=== PATIENT | female | born 1940 | race Caucasian/White ===

== ENCOUNTER → 2016-07-31 | Outpatient (CLI) | payer MEDICARE, OTHER ==
[~2016-07-31] MED LIST: DILT180C67 PO; DIVA250T48 PO; DIVA500T31 PO; ESCI10TA47 PO; GABA-215 PO; HYDR-4074 PO; LEVO100T85; NYST8800 TOP; OXYB5TAB PO; TORS10TA17 PO; TRAM-277 PO; ZOLP-113 PO
--- NOTE | 2016-07-31 11:52 | DI ---
Indication: ITS.REASON: M79.672 PAIN IN LEFT FOOT PROCEDURE: ANKLE LEFT 3 VIEW: Encounter: Initial Comparison: January 19, 2014 Findings: There is no acute fracture, dislocation or malalignment identified. Moderate lateral soft tissue swelling. Degenerative change in the tibiotalar joint. Inferior calcaneal spurs. Impression: No acute osseous abnormality. .
--- NOTE | 2016-07-31 11:54 | DI ---
Indication: ITS.REASON: M79.672 PAIN IN LEFT FOOT PROCEDURE: FOOT LEFT 3 VIEWS: Encounter: Initial Comparison: January 19, 2014 Findings: There is no acute fracture, dislocation or malalignment identified. Advanced degenerative change at the tarsometatarsal joints and evidence of old metatarsal neck fractures. Impression: No acute osseous abnormality. .
== END ==
LOC: IMA 11:17
PROVIDERS: ATTEND Family Medicine
DX: M79.89 Other specified soft tissue disorders (principal); M89.8X7 Other specified disorders of bone, ankle and foot; M77.32 Calcaneal spur, left foot; M79.672 Pain in left foot

== ENCOUNTER 2016-08-29 06:56 | Day surgery (SDC) | payer MEDICARE, OTHER ==
[~2016-08-29] VITALS: Ht 147.3 cm; Wt 93.7 kg
[~2016-08-29 06:56] MED LIST changes: -DIVA250T48 PO; +FENO145T20 PO; -HYDR-4074 PO; -LEVO100T85; +LEVO100T85 PO; -ZOLP-113 PO
--- OUTSIDE RECORDS SUMMARY | 2016-08-29 07:00 | XMS REPORT | Continuity of Care Document ---
Author Author [facility] Organization [facility] Address Unknown Phone Unavailable Support Name Relationship Address Phone DOUGLAS OSORIO MD Caregiver [facility] [address] [place] [address] RASHID [address] [place] [address] [phone] VAN HAYDEN MD Caregiver [address] [place] [address] [address] [place] [phone] BAUTISTA OCONNELL Next Of Kin [address] [place] [address] Insurance Providers Payer Name Policy Number Subscriber Name Relationship Medicare [id number] Lourdes Oconnell 18 Self Other A Insurance [id number] Lourdes Oconnell 18 Self Advance Directives Directive Response Recorded Date/Time Ordered Resuscitation Status Full Code 04/12/14 2:51pm Resuscitation Documents on File No 04/12/14 1:52pm Problems No known problems or medical conditions. Medications Medication Dose Route Sig Days/Qty Instructions Order Date Discontinued Date Status Propoxyphene/Acetaminophen 1 Tab PO NEEDED 07/06/09 01/01/12 Discontinued Diltiazem Hcl 180 Mg PO TWICE A DAY 07/06/09 Active Zolpidem Tartrate 10 Mg PO BEDTIME 07/06/09 Active Levothyroxine Sodium 88 Mcg PO DAILY 07/06/09 05/23/12 Discontinued P-Ephed Hcl/Fexofenadine Hcl 1 Tab.sr PO DAILY 07/06/09 08/29/10 Discontinued Tolterodine Tartrate 4 Mg PO BEDTIME 07/06/09 Active Benzonatate 200 Mg PO DAILY 07/06/09 04/19/11 Discontinued Divalproex Sodium 500 Mg PO BEDTIME 07/06/09 Active Divalproex Sodium 250 Mg PO BEDTIME 07/06/09 01/01/12 Discontinued [Zyrtec] 08/29/10 05/23/12 Discontinued [Flonase] 08/29/10 05/23/12 Discontinued [Lisinopril] 08/29/10 01/01/12 Discontinued Tramadol Hcl 50 Mg PO EVERY 4-6 HOURS PRN 05/17/12 Active Gabapentin 300 Mg PO THREE TIMES A DAY 05/17/12 Active Levothyroxine Sodium DAILY 05/23/12 Active Nystatin 1 Applic TOP TWICE A DAY Apply powder twice daily to affected area. 04/12/14 Active Social History Social History Problem Response Recorded Date/Time Smoking Status Never smoker 04/12/2014 1:53pm Chewing Tobacco Status No 05/26/2012 1:51pm Hx Substance Use No 04/12/2014 1:53pm Hx Alcohol Use No 04/12/2014 1:53pm Has the pt used tobacco in the last 12 months No 04/12/2014 1:53pm Query Response Start Date Stop Date Smoking Status Never smoker Hospital Discharge Instructions No hospital discharge instructions. Plan of Care No plan of care. Functional Status No functional status results. Allergies, Adverse Reactions, Alerts Allergen Type Severity Reaction Status Last Updated Iodinated Contrast Media - IV Dye Allergy Intermediate RASH Active Penicillin Allergy Intermediate HIVES Active 05/17/12 Aloe Allergy Intermediate RASH Active 05/17/12 Codeine Adverse Reaction Mild FEELS "HIGH" Active 05/17/12 Doxycycline Allergy Intermediate RASH Active 05/17/12 Azithromycin Allergy Unknown Active 04/12/14 Doxepin Allergy Unknown Active 05/17/12 Immunizations Name Given Type Hx Influenza Vaccination No Historical Hx Pneumococcal Vaccination Y 2010 Historical Hx Influenza Vaccination No Historical Vital Signs Acute Vital Signs Vital Response Date/Time Temperature (Fahrenheit) 97.3 deg F (96.8 - 99.1) Temperature (Calculated Celsius) 36.49658 degrees C (36.0 - 37.3) Temperature Source Temporal Pulse Rate (adult) 70 bpm (60 - 100) Respiratory Rate 24 breaths/min (10 - 20) O2 Sat by Pulse Oximetry 99 % (90 - 100) Oxygen Delivery Method Room Air Blood Pressure 125/66 mm Hg Blood Pressure Source Automatic Cuff Height 4 ft 10 in Weight 195 lb Body Mass Index 40.0 kg/m^2 Results Test Source Date Result Interp. Ref. Range Comments Anion Gap October 19, 2013 10:20am 12 MEQ/L N 5-15 BUN/Creatinine Ratio October 19, 2013 10:20am 23 RATIO N 6-26 Band Neutrophils # July 22, 2008 11:00am 0.1 T/MM3 - Band Neutrophils % July 22, 2008 11:00am 1.0 % N 0-6 Basophils # (Auto) May 27, 2012 9:08am 0.0 T/MM3 N 0-0.2 Basophils # (Manual) July 22, 2008 11:00am 0.0 T/MM3 N 0-0.2 Basophils % (Manual) July 22, 2008 11:00am 0.0 % N 0-2 Basophils (%) (Auto) May 27, 2012 9:08am 0.3 % N 0-2 Blood Urea Nitrogen October 19, 2013 10:20am 18.0 MG/DL H 7-17 Calcium Level October 19, 2013 10:20am 9.5 MG/DL N 8.4-10.2 Calculated Osmolality October 19, 2013 10:20am 264 MOSM/KG N 261-280 Carbon Dioxide Level October 19, 2013 10:20am 29 MEQ/L N 22-30 Chloride Level October 19, 2013 10:20am 95 MEQ/L L 98-107 Creatinine October 19, 2013 10:20am 0.8 MG/DL N 0.7-1.2 Eosinophils # (Auto) May 27, 2012 9:08am 0.0 T/MM3 N 0-0.5 Eosinophils # (Manual) July 22, 2008 11:00am 0.5 T/MM3 N 0-0.5 Eosinophils % (Manual) July 22, 2008 11:00am 7.0 % H 0-4 Eosinophils (%) (Auto) May 27, 2012 9:08am 0.6 % N 0-4 Glucose Level October 19, 2013 10:20am 106 MG/DL N 65-110 Hematocrit May 27, 2012 9:08am 39.5 % N 36-46 Hemoglobin May 27, 2012 9:08am 13.5 GM/DL N 12-16 Lymphocytes # (Auto) May 27, 2012 9:08am 2.1 T/MM3 N 1-4.8 Lymphocytes # (Manual) July 22, 2008 11:00am 3.5 T/MM3 N 1-4.8 Lymphocytes % (Manual) July 22, 2008 11:00am 47.0 % H 23-45 Lymphocytes (%) (Auto) May 27, 2012 9:08am 29.1 % N 23-45 Mean Corpuscular Hemoglobin May 27, 2012 9:08am 29.5 UUG N 26-34 Mean Corpuscular Hemoglobin Concent May 27, 2012 9:08am 34.2 GM/DL N 31-37 Mean Corpuscular Volume May 27, 2012 9:08am 86.4 UM3 N 80-100 Mean Platelet Volume May 27, 2012 9:08am 8.7 UM3 L 9.4-12.4 Monocytes # (Auto) May 27, 2012 9:08am 1.1 T/MM3 H 0-0.8 Monocytes # (Manual) July 22, 2008 11:00am 1.2 T/MM3 H 0-0.8 Monocytes % (Manual) July 22, 2008 11:00am 16.0 % H 0-9.0 Monocytes (%) (Auto) May 27, 2012 9:08am 15.9 % H 0-9.0 Neutrophils # (Auto) May 27, 2012 9:08am 3.7 T/MM3 N 1.8-7.7 Neutrophils # (Manual) July 22, 2008 11:00am 2.1 T/MM3 N 1.8-7.7 Neutrophils % (Manual) July 22, 2008 11:00am 29.0 % L 33-66 Neutrophils (%) (Auto) May 27, 2012 9:08am 52.8 % N 33-66 Platelet Count May 27, 2012 9:08am 267 T/MM3 N 130-400 Potassium Level October 19, 2013 10:20am 4.5 MEQ/L N 3.6-5 RDW Standard Deviation May 27, 2012 9:08am 39.8 FL N 36.9-50.2 Red Blood Count May 27, 2012 9:08am 4.57 M/MM3 N 4.00-5.20 Sodium Level October 19, 2013 10:20am 136 MEQ/L N 134-144 Urine Bacteria February 25, 2009 10:05am Trace - Urine Bilirubin February 25, 2009 10:05am Negative - Urine Blood February 25, 2009 10:05am 1+ H - Urine Collection Type February 25, 2009 10:05am Not Performed - Urine Color February 25, 2009 10:05am Yellow - Urine Glucose (UA) February 25, 2009 10:05am Negative - Urine Ketones February 25, 2009 10:05am Negative - Urine Leukocyte Esterase February 25, 2009 10:05am Trace H - Urine Nitrite February 25, 2009 10:05am Negative - Urine Protein February 25, 2009 10:05am Negative - Urine RBC February 25, 2009 10:05am 3-5 /HPF - Urine Renal Epithelial Cells May 25, 2008 5:05pm 1-3 /HPF - Urine Specific [place] February 25, 2009 10:05am 1.005 L - Urine Squamous Epithelial Cells February 25, 2009 10:05am Few - Urine Turbidity February 25, 2009 10:05am Clear - Urine Urobilinogen February 25, 2009 10:05am Normal EU/DL - Urine WBC February 25, 2009 10:05am 5-10 /HPF - Urine pH February 25, 2009 10:05am 7.0 - White Blood Count May 27, 2012 9:08am 7.0 T/MM3 N 4.5-11.0 Chemistry Specimen Hemolysis October 19, 2013 10:20am < 15 0-25 0-25: No Hemolysis.26-70: Slight Hemolysis - can falsely elevate K and Urine Protein. 71-285: Moderate Hemolysis - can falsely elevate K, Troponin I, CA 19-9, PTH, CSF GLucose, and Urine Protein, and can falsely decrease Phenytoin. 286-999: Gross Hemolysis - can falsely elevate K, Troponin I, CA 19-9, PTH, CSF Glucose, and Urine Protine, and can falsely decrease Phenytoin. Recommend specimen recollection. Lab Scanned Report October 19, 2013 12:50pm LAB TEST FORM REQUEST [id number] - Turbidity October 19, 2013 10:20am < 20 0-20 Glomerular Filtration Rate Calc October 19, 2013 10:20am 70 - Immature Granulocyte # (Auto) May 27, 2012 9:08am 0.09 T/MM3 H 0.00- 0.03 Immature Granulocyte % (Auto) May 27, 2012 9:08am 1.3 % H 0.0-0.5 Icterus Index October 19, 2013 10:20am < 2 0-7 Name: LOURDES OCONNELL Unit #: [id number] : 1940 Sex: F Loc / Svc: [facility] DOS: 01/19/14 Signed Report #: [id number] DIAGNOSTIC IMAGING REPORT TYPE OF EXAM: FOOT LEFT 3 VIEWS Dictated By: HIMANSHU STEIN MD INDICATION: FELL 4 MONTHS AGO, PAIN COMPARISON: none. FOOT LEFT 3 VIEWS: Evidence of severe tarsal and tarsal - metatarsal arthritis. Evidence of mild arthritis in the toes. Minor deformities at the neck of the second, third, fifth metatarsals appear to be old fractures which have healed. No evidence of an acute fracture. No evidence of a dislocation. IMPRESSION: Arthritis. Evidence of old metatarsal fractures. . Procedures Procedure Status Date Provider(s) Colonoscopy completed 04/13/14 DOUGLAS OSORIO MD Encounters Encounter Location Date/Time Registered Clinic [facility] 01/19/14 12:03pm
[2016-08-29] MEDS: TETRACAINE 0.5% EYE DROPS 4ml BOTTLE LEFT EYE PRN ×3 (07:35→08:43)
[2016-08-29 07:41] VITALS: Ht 147.3 cm; Wt 93.7 kg
[2016-08-29 07:47] VITALS: BP 161/67; PULSE 71; RESP 20; TEMP 98.3; O2SAT 95
[2016-08-29 08:15] VITALS: BP 179/72; PULSE 68; RESP 18; O2SAT 96
[2016-08-29 08:36] VITALS: BP 155/69; PULSE 65; RESP 18; O2SAT 97
[2016-08-29 08:45] VITALS: BP 159/74; PULSE 63; RESP 16; O2SAT 96
[2016-08-29] MEDS ORDERED: PrednisoLONE 1% EYE DROPS 5ml LEFT EYE ONE (08:45)
[2016-08-29] MEDS ORDERED: BRIMONIDINE 0.2% EYE DROPS 5ml LEFT EYE ONE (08:45)
--- NOTE | 2016-08-29 15:50 | OPNOTEF ---
DATE OF OPERATION 08/29/2016 PREOPERATIVE AND POSTOPERATIVE DIAGNOSES Visually significant opacified posterior capsule, left eye. PROCEDURE YAG capsulotomy, left eye. SURGEON Gibson Ford M.D. DESCRIPTION OF PROCEDURE The patient was brought to the laser room where tetracaine was placed into the left eye. Patient was positioned at the laser and a YAG capsulotomy lens was placed over her eye after Goniosol was placed into the lens. The laser was focused and with 37 bursts of laser power at 2.3 millijoules, a total of 81.8 millijoules, the posterior capsule was opened sufficiently so that the patient should have vision restored. The Yag capsulotomy laser lens was removed, the eye rinsed and a drop of Brimonidine placed into the eye and pressure was checked half an hour later and noted to be normal. This completed the procedure. FATOUMATA
[2016-08-29] MEDS ORDERED: TROPICAMIDE 1% EYE DROPS 3ml LEFT EYE PRN (16:00)
[2016-08-29] MEDS ORDERED: PHENYLEPHRINE 2.5% EYE DROPS 5ml LEFT EYE PRN (16:00)
== END 2016-08-29 08:57 | disposition home or self-care (01) ==
LOC: NSC 06:56
PROVIDERS: ATTEND Ophthalmology
DX: H26.492 Other secondary cataract, left eye (principal); Z88.0 Allergy status to penicillin; Z88.1 Allergy status to other antibiotic agents; Z88.5 Allergy status to narcotic agent; Z88.8 Allergy status to other drugs, medicaments and biological substances; Z91.041 Radiographic dye allergy status

== ENCOUNTER → 2016-09-07 | Outpatient (CLI) | payer MEDICARE, OTHER ==
[~2016-09-07] MED LIST changes: +ASPI-917 PO; +OXYC-46 PO
--- NOTE | 2016-09-07 15:18 | DI ---
Indication: ITS.REASON: M25.562 PAIN IN LEFT KNEE PROCEDURE: KNEE LEFT 3 VIEWS: Encounter: Initial Comparison: None Findings: Lucency in the anterior aspect of the patella on the lateral view. No additional area concerning for acute fracture. Tiny tricompartmental osteophytes. Chronic appearing deformity of the fibular head. Impression: Lucency in the anterior patella seen on the lateral view could represent a nondisplaced patellar fracture. Recommend clinical correlation for focal tenderness. .
== END ==
LOC: IMA 14:42
PROVIDERS: ATTEND Family Medicine
DX: R93.7 Abnormal findings on diagnostic imaging of other parts of musculoskeletal system (principal); Z91.81 History of falling; M25.562 Pain in left knee

== ENCOUNTER → 2016-09-12 | Outpatient (CLI) | payer MEDICARE, OTHER ==
[2016-09-12 11:26] LABS: BASOPHILS % (AUTO) 0.3 % (0-2); EOSINOPHILS # (AUTO) 0.3 T/MM3 (0-0.5); EOSINOPHILS % (AUTO) 3.3 % (0-4); HCT - HEMATOCRIT 39.3 % (36-46); HGB - HEMOGLOBIN 12.8 GM/DL (12-16); IMMATURE GRANULOCYTE # (AUTO) 0.02 T/MM3 (0.00-0.03); IMMATURE GRANULOCYTE % (AUTO) 0.2 % (0.0-0.5); LYMPHOCYTES # (AUTO) 2.4 T/MM3 (1-4.8); MEAN CORPUSCULAR HGB 29.8 UUG (26-34); MEAN CORPUSCULAR HGB CONC(MCHC 32.6 GM/DL (31-37); MEAN CORPUSCULAR VOLUME 91.6 UM3 (80-100); MEAN PLATELET VOLUME 10.2 UM3 (9.4-12.4); MONOCYTES # (AUTO) 0.8 T/MM3 (0-0.8); MONOCYTES % (AUTO) 8.4 % (0-9.0); NEUTROPHILS #(AUTO)-ABSOLUTE 5.9 T/MM3 (1.8-7.7); NEUTROPHILS % (AUTO) 62.8 % (33-66); RED BLOOD COUNT 4.29 M/MM3 (4.00-5.20); WBC - WHITE BLOOD COUNT 9.5 T/MM3 (4.5-11.0)
[2016-09-12 11:34] LABS: ANION GAP 14 MEQ/L (5-15); BUN/CREATININE RATIO 24 RATIO (6-26); CALCIUM 9.8 MG/DL (8.4-10.2); CHLORIDE 101 MEQ/L (98-107); CO2 - CARBON DIOXIDE 30 MEQ/L (22-30); GLOMERULAR FILTRATION RATE 54; GLUCOSE 99 MG/DL (65-110); POTASSIUM 4.1 MEQ/L (3.6-5); SODIUM 145 MEQ/L (134-144)
--- NOTE | 2016-09-12 12:23 | DI ---
INDICATION: ITS.REASON: Z01.89 PRE-OP EXAM PROCEDURE: CHEST 2-VIEWS UPRIGHT (PA \T\ LAT) Encounter: Initial COMPARISON: December 06, 2015 FINDINGS: The lungs are clear without evidence of focal abnormal airspace opacity. There is no pleural effusion or pneumothorax. The heart size, mediastinal contours and pulmonary vascularity are stable with a very tortuous thoracic aorta. Orthopedic hardware in the right humeral head region. Degenerative change in the spine and shoulders. IMPRESSION: No acute cardiopulmonary disease. .
== END ==
LOC: IMA 10:32
PROVIDERS: ATTEND Orthopaedic Surgery
DX: Z01.818 Encounter for other preprocedural examination (principal)
CPT/HCPCS: 36415; 80048; 85025; 93005

== ENCOUNTER 2016-09-14 08:25 | Day surgery (SDC) | payer MEDICARE, OTHER ==
[2016-09-14] VITALS (21 sets, daily range): BP systolic 110–165; BP diastolic 54–98; PULSE 72–90; RESP 12–18; TEMP 97.3–98.7; O2SAT 92–98; Ht 148.6 cm; Wt 92.4 kg
[~2016-09-14] VITALS: Ht 148.6 cm; Wt 92.4 kg
[~2016-09-14 08:25] MED LIST changes: -ASPI-917 PO; +CLINDAMYCIN 600mg IVPB 50 ML IV ONE; +LIDOCAINE 1% (10mg/ml) 2ml SDV INJ ONE; -OXYC-46 PO
--- OUTSIDE RECORDS SUMMARY | 2016-09-14 08:28 | XMS REPORT | Continuity of Care Document ---
Author Author [facility] Organization [facility] Address Unknown Phone Unavailable Support Name Relationship Address Phone ARYAN MAHER MD Caregiver [address] [place] [address] [address] [place] [address] Unavailable VAN HAYDEN MD [address] [place] [address] Unavailable BAUTISTA OCONNELL Next Of Kin [phone] [address] Insurance Providers Guarantor Lourdes Oconnell Address [address] [address] Email DENIED [phone] Payer Medicare Policy Number [id number] Subscriber's Name EmmyLourdes Wang Relationship 18 Self Payer Other A Insurance Policy Number [id number] Subscriber's Name EmmyLourdes Relationship 18 Self Group Number [id number] Advance Directives Directive Response Recorded Date/Time Ordered Resuscitation Status Full Code 08/28/16 3:56pm Resuscitation Documents on File No 08/29/16 7:41am DPOA for Healthcare Only No 08/29/16 7:41am Living Will No 08/29/16 7:41am Problems No problem information available. Medications Current Home Medications Medication Dose Units Route Directions Days Qty Instructions Start Date Diltiazem Hcl (Diltiazem Er) 180 Mg Capsule.cr 180 Mg Oral Twice A Day 07/06/09 Divalproex Sodium (Depakote) 500 Mg Tablet. 500 Mg Oral Bedtime 07/06/09 Escitalopram Oxalate 10 Mg Tablet 1 Tab Oral Daily 05/10/15 Fenofibrate Nanocrystallized (Fenofibrate) 145 Mg Tablet 1 Tab Oral Daily 30 08/28/16 Gabapentin 300 Mg Capsule 2 Tab Oral Three Times A Day 05/17/12 Levothyroxine Sodium 100 Mcg Tablet Daily 05/23/12 Nystatin 1 Each Powder.ea. 1 Applic Topically Three Times A Day 04/12/14 Oxybutynin Chloride (Oxybutynin Chloride Er) 5 Mg Tab.er.24 1 Tab Oral Bedtime 05/10/15 Torsemide 10 Mg Tablet 1 Tab Oral Daily 05/10/15 Tramadol Hcl 50 Mg Tablet 50 Mg Oral Every 4-6 Hours as needed Past Home Medications Medication Directions Ordered Status Benzonatate 200 Mg Capsule, 200 Mg Oral Daily 07/06/09 Discontinued Divalproex Sodium (Depakote) 250 Mg Tablet.dr, 250 Mg Oral Bedtime 07/06/09 Discontinued Flonase , 08/29/10 Discontinued Levothyroxine Sodium 88 Mcg Tablet, 88 Mcg Oral Daily 07/06/09 Discontinued Lisinopril , 08/29/10 Discontinued P-Ephed Hcl/Fexofenadine Hcl (Sofi-D 24 Hour Tablet) 1 Tab.sr .24 H Tab.sr.24h, 1 Tab.sr Oral Daily 07/06/09 Discontinued Propoxyphene/Acetaminophen (Prmxpxq-T-Wwkx 100-650 Tab) 1 Tab Tablet, 1 Tab Oral As Needed 07/06/09 Discontinued Zyrtec , 08/29/10 Discontinued Social History Social History Problem Response Recorded Date/Time Onset Date Status Chewing Tobacco Status No 05/26/2012 1:51pm Not Applicable Not Applicable Hx Substance Use No 08/28/2016 11:15am Not Applicable Not Applicable Hx Alcohol Use No 08/28/2016 11:15am Not Applicable Not Applicable Has the pt used tobacco in the last 12 months No 08/28/2016 11:15am Not Applicable Not Applicable Query Response Start Date Stop Date Smoking Status Never smoker Hospital Discharge Instructions No hospital discharge instructions. Plan of Care Discharge Date 08/29/16 8:57am Prescriptions See Medication Section Functional Status Query Response Date Recorded Ability to complete ADL's impeded by No change August 29, 2016 7:41am Allergies, Adverse Reactions, Alerts Allergen Type Severity Reaction Status Last Updated Iodinated Contrast Media - Oral and Allergy Intermediate RASH Active 08/29 Penicillin Allergy Intermediate HIVES Active 08/29/16 aloe Allergy Intermediate RASH Active 08/29/16 Codeine Adverse Reaction Mild FEELS "HIGH" Active 08/29/16 Doxycycline Allergy Intermediate RASH Active 08/29/16 Azithromycin Allergy Unknown Active 08/29/16 Cetirizine Allergy Unknown Active 08/29/16 Doxepin Allergy Unknown Active 08/29/16 Immunizations Query Response on File Recorded Date/Time Hx Influenza Vaccination Y FEBRUARY 2016 08/28/16 11:15am Hx Pneumococcal Vaccination Y 201008/28/16 11:15am Hx Influenza Vaccination Y FEBRUARY 2016 08/28/16 11:15am Vital Signs Acute Vital Signs Vital Response Date/Time Temperature (Fahrenheit) 98.3 deg F (96.8 - 99.1) 08/29/2016 7:47am Temperature (Calculated Celsius) 36.36260 degrees C (36.0 - 37.3) 08/29/2016 7:47am Temperature Source Oral 08/29/2016 7:47am Pulse Rate (adult) 63 bpm (60 - 100) 08/29/2016 8:45am Respiratory Rate 16 breaths/min (10 - 20) 08/29/2016 8:45am O2 Sat by Pulse Oximetry 96 % (90 - 100) 08/29/2016 8:45am Oxygen Delivery Method Room Air 08/29/2016 8:45am Blood Pressure 159/74 mm Hg 08/29/2016 8:45am Blood Pressure Source Automatic Cuff 08/29/2016 8:45am Height (Feet) 4 feet 08/29/2016 7:41am Height (Inches) 10.00 inches 08/29/2016 7:41am Weight (Kilograms) 93.700 kg 08/29/2016 7:41am Body Mass Index (BMI) 43.2 08/29/2016 7:41am Results No known relevant diagnostic tests, laboratory data and/or discharge summary. Procedures Procedure Status Date Provider(s) X-ray exam of ankle Completed 07/31/16 X-ray exam of foot Completed 07/31/16 YAG laser treatment of eye Active 08/29/16 ARYAN MAHER MD Encounters Encounter Location Arrival/Admit Date Discharge/Depart Date Attending Provider Departed [facility] 08/29/16 6:56am 08/29/16 8: 57am ARYAN MAHER MD Registered Clinic [facility] 07/31/16 11:17am VAN HAYDEN MD
--- OUTSIDE RECORDS SUMMARY | 2016-09-14 08:29 | XMS REPORT | Continuity of Care Document ---
Author Author [facility] Organization [facility] Address Unknown Phone Unavailable Support Name Relationship Address Phone DOUGLAS OSORIO MD Caregiver [facility] [address] [place] [address] [address] [place] [address] [phone] VAN HAYDEN MD Caregiver [address] [place] [address] [address] [place] [phone] BAUTISTA OCONNELL Next Of Kin [address] [place] [address] Insurance Providers Payer Name Policy Number Subscriber Name Relationship Medicare [id number] Lourdes Oconnell 18 Self Other A Insurance [id number] Lourdes Oconnell 18 Self Advance Directives Directive [...] F (96.8 - 99.1) Temperature (Calculated Celsius) 36.61056 degrees C (36.0 - 37.3) Temperature Source [...] 2008 5:05pm 1-3 /HPF - Urine Specific [place] February 25, 2009 10:05am 1.005 L - [...] 19, 2013 12:50pm LAB TEST FORM REQUEST [id number] - Turbidity October 19, 2013 10:20am < 20 0-20 Glomerular Filtration Rate Calc October 19, 2013 10:20am 70 - Immature Granulocyte # (Auto) May 27, 2012 9:08am 0.09 T/MM3 H 0.00- 0.03 Immature Granulocyte % (Auto) May 27, 2012 9:08am 1.3 % H 0.0-0.5 Icterus Index October 19, 2013 10:20am < 2 0-7 Name: LOURDES OCONNELL Unit #: [id number] : 1940 Sex: F Loc / Svc: [facility] DOS: 01/19/14 Signed Report #: [id number] DIAGNOSTIC IMAGING REPORT TYPE OF EXAM: FOOT [...] MD Encounters Encounter Location Date/Time Registered Clinic [facility] 01/19/14 12:03pm
[2016-09-14] MEDS ORDERED: OXYC-46 PO (09:15)
[2016-09-14] MEDS: LR 1,000 ML IV SCH ×2 (09:31→22:48)
--- NOTE | 2016-09-14 09:51 | ANESPREOP ---
Anesthesia Record Date and Time DATE: 09/14/16 TIME: 09:48 Pre-Op Diagnosis left patella fracture Proposed Surgical Procedure LT KNEE ORIF NPO since: 2199 Allergies: Coded Allergies: Iodinated Contrast Media - Oral and (Verified Allergy, Intermediate, RASH , 08/29/16) Penicillins (Verified Allergy, Intermediate, HIVES, 08/29/16) aloe (Verified Allergy, Intermediate, RASH, 08/29/16) doxycycline (Verified Allergy, Intermediate, RASH, 08/29/16) azithromycin (Unverified Allergy, Unknown, 08/29/16) cetirizine (Unverified Allergy, Unknown, 08/29/16) PER H&P doxepin (Verified Allergy, Unknown, 08/29/16) codeine (Verified Adverse Reaction, Mild, FEELS "HIGH", 08/29/16) Ht/Wt/BMI Height: 4 ' 10.50 " Weight: 95.500 kg BMI: 43.3 kg/m2 Vital Signs Date Time Temp Pulse Resp B/P Pulse Ox O2 Delivery O2 Flow Rate FiO2 09/14/16 09:21 98.7 72 16 165/72 94 Room Air Medications Inpatient Medications Current Medications Medications (Trade) Dose Ordered Sig/Melecio Start Time Stop Time Status Last Admin Dose Admin Lactated Ringer's (Lactated Ringers) 1,000 ml @ 50 mls/hr Q20H 09/14/16 07:00 09/14/16 09:31 50 MLS/HR Diltiazem Hcl (Diltiazem Er) 180 Mg Capsule.cr, 180 MG PO BID, (Reported) Last Taken: on 09/14/16 0600 Divalproex Sodium (Depakote) 500 Mg Tablet.dr, 500 MG PO HS, (Reported) Last Taken: on 09/13/16 0830 Escitalopram Oxalate (Escitalopram Oxalate) 10 Mg Tablet, 1 TAB PO DAILY, (Reported) Last Taken: on 09/13/16 06 Fenofibrate Nanocrystallized (Fenofibrate) 145 Mg Tablet, 1 TAB PO DAILY, (Reported) Last Taken: on 09/13/162029 Gabapentin (Gabapentin) 300 Mg Capsule, 2 TAB PO TID, (Reported) Last Taken: on 09/13/162029 Levothyroxine Sodium (Levothyroxine Sodium) 100 Mcg Tablet, 112 MCG PO DAILY, (Reported) Last Taken: on 09/14/16 06 Nystatin (Nystatin) 1 Each Powder.ea., 1 APPLIC TOP TID, (Reported) Last Taken: on 09/07/16 Oxybutynin Chloride (Oxybutynin Chloride ER) 5 Mg Tab.er.24, 1 TAB PO HS, (Reported) Last Taken: on 09/13/162029 Oxycodone HCl/Acetaminophen (Percocet 5-325 mg Tablet) 5-325 Tablet, 1 TAB PO Q4H PRN for PRN ORDERS, (Reported) Last Taken: on 09/13/161599 Torsemide (Torsemide) 10 Mg Tablet, 1 TAB PO DAILY, (Reported) Last Taken: on 09/13/16599 Tramadol Hcl (Tramadol Hcl) 50 Mg Tablet, 50 MG PO Q4-6H PRN, (Reported) Last Taken: on 09/13/162029 Currently on Beta Roxanna: No Medical/Surgical History Anesthesia PMH: Reports: *Hypertension (CONTROLLED MEDICATIONS), Asthma (NO INH ), Headaches, Pneumonia (HX OF MORE THAN 5 YEARS AGO), Thyroid Disease ( HYPOTHYROID), Denies: *Angina, *Diabetes, *Dyspnea, *[place], Anesthesia Reactions ( NO AIRWAY ISSUES ), Arthritis (HISTORY OSTEOPOROSIS), Blood Transfusion Reac, CHF, COPD, Cancer, Clotting Problems, Deep Vein Thrombosis, Glaucoma, Hepatitis , Hiatal Hernia, Malignant Hyperthermia, Reflux, Renal Disease, Rheumatic Fever , Seizures, Sleep Apnea, Tuberculosis Smoking Status: Never smoker Has pt. smoked today?: No Use Chewing Tobacco?: No Second Hand Exposure: No Substance Use Type: does not use Substance last used: prior to arrival Alcohol Intake: none Past Surgical History Orthopedic Surgeries: Yes - 2 TOES AMPUTATED ON RT FOOT; OPEN RCR RT W/ PLATE/ SCREWS;HAMMER TOE REPAIR Abdominal Surgeries: No Genitourinary Surgeries: Yes - CYSTO Cardiac Surgeries: No Endocrine Surgeries: No Reproductive Surgeries: Yes - D&C, TUBAL, ABD HYST Neurological Surgeries: Yes - LAMINECTOMY X2 Ear Surgeries: No Nose Surgeries: Yes - NOSE SURGERY Throat Surgeries: No Other Surgeries: Yes - DENTAL SURGERY, COLONOSCOPIES, B CATARACTS Anesthesia Adverse Reactions: FOUND none Family Hx of Anesthesia Advers: none Hx of Motion Sickness: No Pertinent Findings EKG Rhythm: Sinus Rhythm Physical Exam Respiratory: Lungs clear Cardiovascular: FOUND Regular rate, rhythm, FOUND Systolic murmur Airway Assessment Mallampati Score: II TMD: 3 Fingerbreadths Neck Extension: Good Teeth: Chipped Teeth/Crowns Overall Assessment: No Airway Concerns ASA: 3 Plan Anesthesia Plan: LMA Discussion Discussed risks/options/alternatives of anesthesia and questions answered. Patient consents. Nursing pain assessment noted. Present: Spouse Attestation Statement Prior to the delivery of any anesthetic medication, I examined the patient, developed the plan, obtained the patient's consent and discussed the risk and benefits of the procedure with the patient/guardian. DAREK COLE I [employer] September 14, 2016 09:50
[2016-09-14] MEDS ORDERED: KETAMINE 500mg/10ml INJECTION ONE (10:37)
[2016-09-14] MEDS ORDERED: MIDAZOLAM 5mg/5ml INJECTION ONE (10:37)
[2016-09-14] MEDS ORDERED: PROPOFOL 500mg 50 ML IV ONE (10:37)
[2016-09-14] MEDS ORDERED: FENTANYL 250mcg/5ml INJECTION ONE (10:37)
[2016-09-14] MEDS ORDERED: HYDROMORPHONE 2mg/ml INJECTION ONE (10:50)
[2016-09-14] MEDS ORDERED: BUPIVACAINE 0.25% (2.5mg/ml) INJ 30ml SDV ONE (10:57)
[2016-09-14] MEDS ORDERED: PROPOFOL 200mg 20 ML IV ONE (12:03)
--- NOTE | 2016-09-14 12:24 | PDPROCED ---
Immediate Operative Note DATE: 09/14/16 TIME: 12:22 Preop Diagnosis: LEFT COMMINUTED PATELLA FRACTURE Postop Diagnosis: Same as above Surgical Procedures: Other (ORIF L Patella) Surgeon: Rojas Driver Examiner: Other (Salvador Victoria MD) Anesthesia: General Pertinent Findings: comminuted inferior pole Complications: none Estimated Blood Loss minimal JESSE FLORENTINO MD September 14, 2016 12:24
[2016-09-14] MEDS ORDERED: METOCLOPRAMIDE 10mg/2ml INJECTION IV PRN (12:30)
[2016-09-14] MEDS ORDERED: MORPHINE SULFATE 4 MG SYRINGE IV PRN (12:30)
[2016-09-14] MEDS ORDERED: HYDROMORPHONE 2mg/ml INJECTION IV PRN (12:30)
[2016-09-14] MEDS ORDERED: ONDANSETRON 4mg/2ml INJECTION IV PRN ×2 (12:30)
[2016-09-14] MEDS ORDERED: MILK OF MAGNESIA 30 ML SUSP PO PRN (12:30)
[2016-09-14] MEDS ORDERED: LORAZEPAM 1 MG TABLET PO PRN (12:30)
--- NOTE | 2016-09-14 12:30 | NUR ---
MONTALVO INSERTION MONTALVO INSERTED UNDER STERILE TECHNIQUE BY THIS RN. THIS RN RECEIVED VERBAL ORDER FROM DR. HAQ THAT IF PATIENT HAD NOT VOIDED BY THE TIME SHE WAS TO BE PICKED UP BY PRES. BOBBY THEN A MONTALVO COULD BE REINSERTED. PATIENT UNABLE TO VOID ON BSC AND WAS NOT INCONTINENT. 16 SETSWANA MONTALVO INSERTED. 10 CC IN BALLOON. PATIENT DOES NOT C/O PAIN DURING INSERTION. IMMEDIATE RETURN OF CLEAR YELLOW URINE. WILL CONTINUE TO MONITOR. Addendum: 09/14/16 at 1309 by PRUDENCIO VELASQUEZ RN CARE PROVIDER MISTAKE. THIS NOTE NOT INTENDED FOR THIS PATIENT. IGNORE NOTE
--- NOTE | 2016-09-14 12:40 | NUR ---
DISMISSAL PATIENT DISMISSED TO [facility] VIA WHEELCHAIR AND [facility] STAFF. PACKET AND PRESCRIPTIONS SENT WITH STAFF. PERSONAL BELONGINGS SENT WITH PATIENT. IV CATHETER REMOVED BY THIS RN. IV CATHETER TIP INTACT. MONTALVO REMAINS IN PLACE AT TIME OF TRANSFER. REPORT CALLED TO CONSTANCE VICTOR AT [facility] AFTER DISMISSAL. Addendum: 09/14/16 at 1308 by PRUDENCIO VELASQUEZ RN CARE PROVIDER MISTAKE. THIS NOTE NOT INTENDED FOR THIS PATIENT. IGNORE NOTE
--- NOTE | 2016-09-14 12:58 | NUR ---
ADMISSION PATIENT ADMITTED TO ROOM 123 AT THIS TIME VIA CART AND PACU STAFF. PATIENT ABLE TO TRANSFER SELF FROM CART TO SURGICAL UNIT BED. A/OX3 BUT DROWSY. PATIENT RATING PAIN AT A 7/10. PATIENT FALLING ASLEEP DURING PERIOD WHEN RN IS NOT ASKING QUESTIONS. EASILY AROUSED. DENIES N/V, CHEST PAIN, AND SOA. FAMILY AT BEDSIDE. BED IN THE LOWEST POSITION, CALL LIGHT WITHIN REACH, SIDE RAILS UPX2, AND BED ALARM ON. WILL CONTINUE TO MONITOR.
--- NOTE | 2016-09-14 13:00 | ANESPO ---
Post-Op Note Date 09/14/16 Time: 13:00 Status Pt Participated in Evaluation: Pt participated in person Vital Signs Date Time Temp Pulse Resp B/P Pulse Ox O2 Delivery O2 Flow Rate FiO2 09/14/16 12:50 81 14 135/61 96 Nasal Cannula 3.00 09/14/16 12:15 98.1 Respiratory Function: Airway patent, Regular respirations Cardiovascular Function: Regular pulse Mental Status: Alert/oriented Pain Level Intensity: 3 Hydration: Taking po fluids, IV infusing Complications during Recovery None apparent Follow-Up Instructions Instructions Per Surgeon DAREK COLE CRNA September 14, 2016 13:00
[2016-09-14] MEDS: OXYCODONE/APAP 5mg/325mg TABLET PO PRN ×3 (13:47→20:34)
--- NOTE | 2016-09-14 13:54 | DI ---
Indication: ITS.REASON: ORIF LEFT PATELLA PROCEDURE: RF KNEE LEFT 3 VIEWS: Encounter: Initial Comparison: Radiographs dated September 07, 2016 Findings: Five fluoroscopic spot images are submitted for interpretation. Images show open reduction and internal fixation of the patellar fracture with placement of two flexible fixation and cerclage wires. Impression: Fluoroscopy as above. Fluoroscopy time is 61 seconds. Fluoroscopy dose is 402 mRad. .
[2016-09-14] MEDS: NAPROXEN 220 MG TABLET PO PRN (16:43)
[2016-09-14] MEDS: CLINDAMYCIN 600mg IVPB 50 ML IV SCH (17:19)
--- NOTE | 2016-09-14 18:35 | NUR ---
END OF SHIFT REPORT PATIENT A/OX3. ROOM AIR. VITAL SIGNS STABLE. AFEBRILE. PT ATTEMPTED TO GET OUT OF BED WITH PT/OT BUT WAS UNSUCCESSFUL DUE TO NOT BEING ABLE TO MAINTAIN TOE-TOUCH INSTRUCTIONS. PATIENT USES BEDPAN AT CURRENT TIME FOR VOIDING. ADEQUATE URINARY OUTPUT. NO BM DURING THE SHIFT. PAIN HAS BEEN CONTROLLED WITH PRN PERCOCET, ALEVE, AND ONE DOSE OF IV MORPHINE. DENIES N/V, CHEST PAIN, AND SOA. BRACE ON LEFT LEG REMAINS IN PLACE. NO S/S OF DRAINAGE. WILL CONTINUE TO MONITOR.
--- NOTE | 2016-09-14 19:24 | OPNOTEF ---
DATE OF SURGERY 09/14/2016 PREOPERATIVE DIAGNOSIS Left comminuted patella fracture. POSTOPERATIVE DIAGNOSIS Left comminuted patella fracture. PROCEDURE Open reduction internal fixation left closed comminuted patella fracture. SURGEON Stan Xie MD PLASTIC SEWER Bharath Faye PA-C ANESTHESIA General. FLUIDS Please refer to Anesthesia chart. EBL Minimal. TOURNIQUET Refer to Anesthesia chart. COMPLICATIONS None. CONDITION Stable in recovery room. DESCRIPTION OF PROCEDURE The patient was identified in the preoperative holding area. The operative extremity was identified and appropriately marked. Risks, benefits, alternatives and potential complications were discussed and informed consent was obtained. The patient was taken to the operating theatre and placed supine on the operating table. Appropriate cardiorespiratory monitors were applied. General anesthesia was induced. Attempt was made at a spinal but appeared to have not taken. The patient was positioned on a fracture table. Appropriate cardiorespiratory monitors had been applied as mentioned. All bony prominences well padded. The left lower extremity was prepped and draped in the usual fashion after application of the tourniquet which was not yet inflated. Surgical time-out was performed, confirmed with myself, the shoulder joiner and circulating nurse. Preoperative antibiotics were given. The leg was exsanguinated with an Esmarch and the tourniquet inflated to 300 mmHg. A knee roll was placed behind the knee and the knee was placed in slight flexion. A 10-cm longitudinal anterior incision was created. Electrocautery was used for hemostasis as necessary. Full-thickness subcutaneous flaps were elevated. Hemorrhagic bursa was then encountered. This was incised longitudinally and elevated off the anterior aspect of the patella. An anterior fracture line was then evident. This was distracted by approximately 2 cm. A Bohemia elevator and sharp dissection were used to resect any loose tissue from the fracture area. A small extension of the fracture as a tear through the medial and lateral retinacular were performed to aid in inspection of the fragments. The proximal fragment was a fairly sizable piece. The distal fragment had anterior cortex which pieced over the proximal fragment. A large cancellus fragment extended from the superior fragment towards the distal. The distal pole was comminuted with comminuted articular fragments. These were removed from the joint as they were not able to be fixed or salvaged. The joint itself was copiously lavaged and irrigated. Curettes were used to freshen the fracture site. Two 2-mm K-wires were passed in a retrograde fashion through the proximal pole extending proximally and then backing the pins to the level of the fracture. We then reduced the fracture utilizing two bone tenacula in a vhjqsomt-rv-kwuppo direction as well as a single tenaculum in the gfpkumvv-wx-mrvkwzpjd direction to reduce this anterior cortical fragment. X-rays were then obtained showing overall good reduction. There was concern about osteopenia in the distal fragment, but we felt we had a reasonable enough cortical rim inferiorly that we were able to utilize this. The 2-mm K-wires were then advanced across the fracture site and out the distal pole of the patella. Again, x-rays were obtained showing maintenance of reduction. A #2 FiberWire was then placed in a kigpgo-vn-npflt fashion over the anterior aspect of the patella lying behind the K-wires both proximally and distally and this was tied. This was followed by a simple cerclage in the same fashion utilizing #2 FiberWire. These were also tied. The clamps were removed at this point as reduction was being maintained. We then proceeded to place an 18-gauge wire posterior to the K-wires both proximally and distally utilizing an angiocatheter to pass as close to bone as possible. They were passed in a sjlyxk-il-bnauj fashion. Two loops were created - one proximal-medial, one distal-lateral. These were simultaneously twisted to apply tension across the anterior aspect of the fracture. The wires were then cut and bent into soft tissue. Final x-rays were obtained. The knee was taken through gentle range of motion and easily obtained 60 degrees of flexion. There was no displacement but we did not want to press it further given the patient's distal osteopenia. Repeat x-rays showed maintenance of reduction. The wound was then copiously irrigated as was the joint via the retinacular incisions. The retinacular incisions were then closed with interrupted zbovaq-df-jsnev #2 FiberWire sutures. The bursal layer was then closed over the hardware and anterior patella utilizing interrupted pcmkjr-au-euizk #1 Vicryl. Skin was closed with 2-0 inverted subcutaneous Vicryl sutures and the skin closed with a running 4-0 quill suture. Dermabond was then applied followed by a Mepilex dressing. The tourniquet was deflated as an Zac bandage was applied followed by an IROM brace locked in extension. The patient was awakened from anesthesia and taken to the recovery room in stable and satisfactory condition. FATOUMATA
[2016-09-14] MEDS: SENNA + DOCUSATE TAB PO SCH (20:34)
[2016-09-14] MEDS: ASPIRIN *EC* 325mg TABLET PO SCH (20:34)
[2016-09-15] MEDS: OXYCODONE/APAP 5mg/325mg TABLET PO PRN ×3 (00:09→10:42)
[2016-09-15] MEDS: NOZIN NASAL SWAB NS SCH ×2 (01:28→09:23)
[2016-09-15] MEDS: CLINDAMYCIN 600mg IVPB 50 ML IV SCH ×2 (01:29→09:23)
[2016-09-15 04:45] VITALS: BP 154/66; PULSE 75; RESP 12; TEMP 98.4; O2SAT 92
--- NOTE | 2016-09-15 05:01 | NUR ---
SHIFT SUMMARY PATIENT IS ALERT AND ORIENTED X3 THIS SHIFT. VITAL SIGNS ARE STABLE ON ROOM AIR. PATIENT HAS NOT BEEN UP FROM BED THIS SHIFT. BEDPAN HAS BEEN USED FOR VOIDING. PATIENT DENIES ANY NAUSEA OR VOMITING THIS SHIFT. PAIN HAS BEEN CONTROLLED WITH PO PRN PERCOCET THIS SHIFT. WILL CONTINUE TO MONITOR.
[2016-09-15 05:46] LABS: BASOPHILS % (AUTO) 0.5 % (0-2); EOSINOPHILS # (AUTO) 0.2 T/MM3 (0-0.5); HGB - HEMOGLOBIN 11.6 GM/DL (12-16); IMMATURE GRANULOCYTE # (AUTO) 0.02 T/MM3 (0.00-0.03); IMMATURE GRANULOCYTE % (AUTO) 0.3 % (0.0-0.5); LYMPHOCYTES # (AUTO) 1.6 T/MM3 (1-4.8); LYMPHOCYTES % (AUTO) 26.2 % (23-45); MEAN CORPUSCULAR HGB 29.6 UUG (26-34); MEAN CORPUSCULAR HGB CONC(MCHC 32.2 GM/DL (31-37); MEAN CORPUSCULAR VOLUME 91.8 UM3 (80-100); MEAN PLATELET VOLUME 10.3 UM3 (9.4-12.4); MONOCYTES # (AUTO) 0.9 T/MM3 (0-0.8); MONOCYTES % (AUTO) 14.5 % (0-9.0); NEUTROPHILS #(AUTO)-ABSOLUTE 3.3 T/MM3 (1.8-7.7); NEUTROPHILS % (AUTO) 54.5 % (33-66); RED BLOOD COUNT 3.92 M/MM3 (4.00-5.20)
[2016-09-15 06:02] LABS: ANION GAP 10 MEQ/L (5-15); BUN/CREATININE RATIO 18 RATIO (6-26); CALCIUM 9.1 MG/DL (8.4-10.2); CHLORIDE 103 MEQ/L (98-107); CO2 - CARBON DIOXIDE 29 MEQ/L (22-30); CREATININE 0.8 MG/DL (0.7-1.2); GLOMERULAR FILTRATION RATE 70; GLUCOSE 107 MG/DL (65-110); POTASSIUM 4.1 MEQ/L (3.6-5); SODIUM 142 MEQ/L (134-144)
[2016-09-15 08:29] VITALS: BP 152/70; PULSE 88; RESP 18; TEMP 96.2; O2SAT 95
[2016-09-15 08:39] VITALS: PULSE 88; RESP 18
[2016-09-15] MEDS: SENNA + DOCUSATE TAB PO SCH (09:23)
[2016-09-15] MEDS: ASPIRIN *EC* 325mg TABLET PO SCH (09:23)
--- NOTE | 2016-09-15 10:10 | NUR ---
FABRICIO THIS WORKER MET WITH PT ON THIS DATE. THIS WORKER INTRODUCED SELF AND ROLE OF CASE MANAGEMENT. DISCHARGE PLANNING DISCUSSED. OPTIONS OF RETIREMENT, IRU, AND HOME WERE DISCUSSED. PT ONLY INTERESTED IN IRU OR HOME. PT REPORTED THAT IF SHE DID NOT GET INTO THE IRU THEN SHE WOULD HAVE TO GO HOME. THIS WORKER DISCUSSED HOME NEEDS IF THAT WERE THE PLAN. PT REPORTED THAT SHE HAS A AND SON THAT ARE THERE AND THAT SHE MIGHT NEED A BEDSIDE COMMODE AND WALKER. IRU SCREEN PLACED AT THIS TIME. CONSUELO, FROM IRU WILL PLAN TO SCREEN PT AFTER PT AND OT EVALUATIONS. UPDATE TO PRIMARY NURSE AT THIS TIME. NURSE WILL PLAN TO CONTACT CONSUELO WHEN THERAPY EVALUATIONS ARE COMPLETED.
--- NOTE | 2016-09-15 11:03 | PDORTHOPN ---
Subjective Date DATE: 09/15/16 TIME: 11:02 Subjective doing well, no chest pain or SOB Objective Vital Signs Vital signs Vital Signs 09/14/16 09/15/16 09/15/16 09/15/16 23:08 04:45 08:29 08:39 Temp 98.3 98.4 96.2 Pulse 73 75 88 88 Resp 12 12 18 18 B/P 136/67 154/66 152/70 Pulse Ox 93 92 95 O2 Delivery Room Air Room Air Room Air Height (Feet): 4 Height (Inches): 10.50 Weight (Kilograms): 92.400 General General Appearance: No Acute Distress Cardiovascular (Brief) Cardiac: FOUND: calf easily compressible, calf soft, nontender, pedal pulses intact Surgical Site Incision: FOUND: dressing intact, no drainage Integumentary (Brief) Integumentary Brief: FOUND dry, FOUND pink, FOUND warm Laboratory Laboratory Laboratory Tests 09/15/16 04:26 Laboratory Tests 09/15/16 04:26 Assessment & Plan Problems: (1) Patella fracture Status: Acute Qualifiers: Encounter type: initial encounter Fracture type: closed Fracture morphology: other fracture Laterality: left Qualified Codes: S82.092A - Other fracture of left patella, initial encounter for closed fracture Assessment & Plan: TTWB with immobilizer. To IRU today Hospital Course Summary Disclaimer The visit summary below is not to be considered part of the above Progress Note. CY CHOW MD September 15, 2016 11:03
[2016-09-15 12:34] VITALS: BP 155/62; PULSE 71; RESP 16; TEMP 96.6; O2SAT 96
--- NOTE | 2016-09-15 12:57 | NUR ---
CM PT NOT ACCEPTED TO IRU. PT NOTIFIED. PT WOULD LIKE TO GO HOME AND REQUESTED [facility]. PT REPORTED THAT SHE WOULD GET THE DME THROUGH THE [facility] THAT SHE NEEDED. PT HAS ALREADY CALLED THE [facility] TO COORDINATE THE DME. PT REPORTED THAT WOULD BE AVAILABLE TO PICK HER UP TODAY. PT REPORTED THAT SHE HAS CONSIDERED HIRING SOMEONE TO HELP OUT DURING THE DAY WHEN [place]." PT HAS THIS WORKER'S CONTACT INFORMATION AND ENCOURAGED TO CONTACT THIS WORKER WITH ANY ADDITIONAL NEEDS. THIS WORKER SPOKE WITH [facility] ([facility]) ON THIS DATE. REFERRAL MADE WITH ORDERS FAXED TO [facility]. UPDATE WITH PRIMARY NURSE.
[2016-09-15] MEDS ORDERED: ASPI-917 PO (13:07)
[2016-09-15] MEDS: NAPROXEN 220 MG TABLET PO PRN (13:19)
--- NOTE | 2016-09-15 13:55 | NUR ---
Discharge Pt discharged at this time via wheelchair through the main entrance in the company of an adult. Personal belongings sent with Pt. Prescription for Percocet was sent with Pt to take to preferred pharmacy. IV catheter DC'd prior to discharge, catheter tip intact. Wristband removed. Discharge packet and instructions gone over with Pt. This RN discussed medications, diet, activity, restrictions, and follow up appt with Pt. [facility] health services set up with Pt by Sierra Prieto CM.
[2016-09-18] MEDS ORDERED: PROPOFOL 500mg 0 ML IV ONE ×2 (07:06→08:11)
[2016-09-18] MEDS ORDERED: MIDAZOLAM 2mg/2ml INJECTION ONE (07:07)
[2016-09-18] MEDS ORDERED: FENTANYL 100mcg/2ml INJECTION ONE (07:45)
[2016-09-18] MEDS ORDERED: PROPOFOL 200mg 0 ML IV ONE (08:56)
== END 2016-09-15 13:55 ==
LOC: SCU 08:25 → SRG 08:26 → SCU 09-15 13:55
PROVIDERS: ATTEND Orthopaedic Surgery
DX: S82.002A Unspecified fracture of left patella, initial encounter for closed fracture (principal); I10 Essential (primary) hypertension; E03.9 Hypothyroidism, unspecified; F31.9 Bipolar disorder, unspecified; J45.909 Unspecified asthma, uncomplicated; Z79.899 Other long term (current) drug therapy; Z88.0 Allergy status to penicillin; Z88.1 Allergy status to other antibiotic agents; Z88.5 Allergy status to narcotic agent; Z88.8 Allergy status to other drugs, medicaments and biological substances; Z91.041 Radiographic dye allergy status; Z90.710 Acquired absence of both cervix and uterus; W01.0XXA Fall on same level from slipping, tripping and stumbling without subsequent striking against object, initial encounter
CPT/HCPCS: 27524; 36415; 73562; 76001; 80048; 85025; 97163; 97166; 97530; A9270; G8978; G8979; G8980; G8987; G8988; G8989; J1170; J2250; J2704; J3010; J7120

== ENCOUNTER → 2016-09-25 | Outpatient (CLI) | payer MEDICARE, OTHER ==
[~2016-09-25] MED LIST changes: +ASPI-917 PO; -CLINDAMYCIN 600mg IVPB 50 ML IV ONE; -LIDOCAINE 1% (10mg/ml) 2ml SDV INJ ONE; +OXYC-46 PO
[2016-09-25 15:53] LABS: BASOPHILS # (AUTO) 0.1 T/MM3 (0-0.2); EOSINOPHILS # (AUTO) 0.3 T/MM3 (0-0.5); HCT - HEMATOCRIT 39.5 % (36-46); HGB - HEMOGLOBIN 12.9 GM/DL (12-16); IMMATURE GRANULOCYTE # (AUTO) 0.02 T/MM3 (0.00-0.03); IMMATURE GRANULOCYTE % (AUTO) 0.3 % (0.0-0.5); LYMPHOCYTES # (AUTO) 2.3 T/MM3 (1-4.8); LYMPHOCYTES % (AUTO) 36.5 % (23-45); MEAN CORPUSCULAR HGB 29.3 UUG (26-34); MEAN CORPUSCULAR HGB CONC(MCHC 32.7 GM/DL (31-37); MEAN CORPUSCULAR VOLUME 89.8 UM3 (80-100); MEAN PLATELET VOLUME 9.8 UM3 (9.4-12.4); MONOCYTES # (AUTO) 0.7 T/MM3 (0-0.8); MONOCYTES % (AUTO) 11.5 % (0-9.0); NEUTROPHILS #(AUTO)-ABSOLUTE 2.9 T/MM3 (1.8-7.7); NEUTROPHILS % (AUTO) 46.7 % (33-66); WBC - WHITE BLOOD COUNT 6.2 T/MM3 (4.5-11.0)
[2016-09-25 16:01] LABS: ANION GAP 10 MEQ/L (5-15); BUN/CREATININE RATIO 22 RATIO (6-26); CALCIUM 9.6 MG/DL (8.4-10.2); CHLORIDE 101 MEQ/L (98-107); CO2 - CARBON DIOXIDE 30 MEQ/L (22-30); CREATININE 1.1 MG/DL (0.7-1.2); GLOMERULAR FILTRATION RATE 48; GLUCOSE 92 MG/DL (65-110); POTASSIUM 4.6 MEQ/L (3.6-5); SODIUM 141 MEQ/L (134-144)
== END ==
LOC: LAB 15:32
PROVIDERS: ATTEND Orthopaedic Surgery
DX: Z01.818 Encounter for other preprocedural examination (principal)
CPT/HCPCS: 36415; 80048; 85025

== ENCOUNTER 2016-10-01 05:40 | Day surgery (SDC) | payer MEDICARE, OTHER ==
[~2016-10-01] VITALS: Ht 147.3 cm; Wt 93.3 kg
[2016-10-01] VITALS (36 sets, daily range): BP systolic 112–148; BP diastolic 52–86; PULSE 66–94; RESP 12–18; TEMP 97.7–99; O2SAT 93–98; Ht 147.3 cm; Wt 93.3 kg
--- OUTSIDE RECORDS SUMMARY | 2016-10-01 05:44 | XMS REPORT | Continuity of Care Document ---
Author Author [facility] Organization [facility] Address Unknown Phone Unavailable Support Name Relationship Address Phone VAN HAYDEN MD Caregiver [address] [place] [address] Unavailable JESSE FLORENTINO MD Caregiver [address] [place] [address] Unavailable BAUTISTA OCNONELL Next Of Kin [address] [address] [address] Insurance Providers Guarantor Lourdes Oconnell Address [address] [address] Email DENIED 16 Payer Medicare Policy Number [id number] Subscriber's Name Lourdes Oconnell Relationship 18 Self Payer Other A Insurance Policy Number [id number] Subscriber's Name Lourdes Oconnell Relationship 18 Self Group Number [id number] Advance Directives Directive Response Recorded Date/Time Ordered Resuscitation Status Full Code 09/13/16 11:50am Resuscitation Documents on File No 09/14/16 9:00am DPOA for Healthcare Only Yes 09/14/16 9:00am Living Will Yes 09/14/16 9:00am Problems Active Problems Medical Problem Onset Date Status Patella fracture Unknown Acute Medications Current Home Medications Medication Dose Units Route Directions Days Qty Instructions Start Date Aspirin (Aspirin Ec) 325 Mg Tablet. 325 Mg Oral Twice A Day 30 Days 60 Tablet 09/15/16 Diltiazem Hcl (Diltiazem Er) 180 Mg Capsule.cr [...] Day 05/17/12 Levothyroxine Sodium 100 Mcg Tablet 112 Mcg Oral Daily 05/23/12 Nystatin 1 Each Powder.ea. 1 Applic Topically Three Times A Day 04/12/14 Oxybutynin Chloride (Oxybutynin Chloride Er) 5 Mg Tab.er.24 1 Tab Oral Bedtime 05/10/15 Oxycodone Hcl/Acetaminophen (Percocet 5-325 Mg Tablet) 5-325 Tablet 1 Tab Oral Every 4 Hours as needed for Prn Orders 09/14/16 Torsemide 10 Mg Tablet 1 Tab Oral [...] 1 Tab.sr Oral Daily 07/06/09 Discontinued Propoxyphene/Acetaminophen (Ylwlbzq-G-Egwp 100-650 Tab) 1 Tab Tablet, 1 Tab Oral As Needed 07/06/09 Discontinued Zyrtec , 08/29/10 Discontinued Social History Social History Problem Response Recorded Date/Time Onset Date Status Reason for Hospitalization Patella fracture 09/15/2016 1:27pm Not Applicable Not Applicable Chewing Tobacco Status No 05/26/2012 1:51pm Not Applicable Not Applicable Hx Substance Use No 09/14/2016 9:18am Not Applicable Not Applicable Hx Alcohol Use No 09/14/2016 9:18am Not Applicable Not Applicable Has the pt used tobacco in the last 12 months No 09/14/2016 9:18am Not Applicable Not Applicable Query Response Start Date Stop Date Smoking Status Never smoker Hospital Discharge Instructions Instructions: Care Instructions: I was in the hospital because (patient own words): fix my left knee Discharge Diet: Regular Discharge Activity: -ELEVATE OPERATIVE LIMB TO PREVENT SWELLING. -NO BATHING OR SWIMMING. -WEAR BRACE -KEEP DRESSING ON AND DRY. -SEE INSTRUCTION SHEET. Follow Up Appointments: FOLLOW-UP APPOINTMENT WITH [facility] ON 09/25/2016 AT 2:30PM. Pending Lab / Results: No Pending Lab Patient Instructions: See discharge instructions Expected Signs/Symptoms: pain Notify Physician If: temp over 101 During Business Hours:: Please call the physician's office at [phone] After Business Hours:: Please call [phone] and have the demolition crane operator page the physician. Pain Management/Treatment: as perscribed Pain Scale Utilized to Educate Patient: 0-10 Pain Scale Wound/Incision Care: keep dressing in place Condition at time of discharge: Good Plan of Care Discharge Date 09/15/16 1:55pm Instructions/Education Provided [facility] Patella Fracture [facility] General Instructions Prescriptions See Medication Section Functional Status Query Response Date Recorded Mobility Status Ambulatory w/assist September 14, 2016 1:05pm Assistive Devices Cane September 14, 2016 1:05pm Activity Limitations Pain September 14, 2016 1:05pm Feeding Ability Independent September 14, 2016 1:05pm Toileting Ability Independent September 14, 2016 1:05pm Grooming Ability Independent September 14, 2016 1:05pm Dressing Ability Independent September 14, 2016 1:05pm Driving Ability Dependent September 14, 2016 1:05pm Housework Ability Independent September 14, 2016 1:05pm Meal Preparation Ability Independent September 14, 2016 1:05pm Stair Climbing Ability Independent September 14, 2016 1:05pm Ability to complete ADL's impeded by Impaired Mobility September 14, 2016 1:05pm Cognitive/Perceptual Impairments Impaired vision September 14, 2016 1:05pm Visual Assistive Devices Glasses September 14, 2016 1:05pm Preferred Method of Learning Reading Video/TV Pictures September 14, 2016 1:05pm Allergies, Adverse Reactions, Alerts Allergen Type Severity [...] Date/Time Hx Influenza Vaccination Y FEBRUARY 2016 09/14/16 9:18am Hx Pneumococcal Vaccination 201009/14/16 9:18am Hx Influenza Vaccination Y FEBRUARY 2016 09/14/16 9:18am Influenza Vaccine Hx fall 201509/14/16 1:06pm Vital Signs Acute Vital Signs Vital Response Date/Time Temperature (Fahrenheit) 96.6 deg F (96.8 - 99.1) 09/15/2016 12:34pm Temperature (Calculated Celsius) 35.63395 degrees C (36.0 - 37.3) 09/15/2016 12:34pm Temperature Source Oral 09/15/2016 12:34pm Pulse Rate (adult) 71 bpm (60 - 100) 09/15/2016 12:34pm Respiratory Rate 16 breaths/min (10 - 20) 09/15/2016 12:34pm O2 Sat by Pulse Oximetry 96 % (90 - 100) 09/15/2016 12:34pm Oxygen Delivery Method Room Air 09/15/2016 12:34pm Oxygen Delivery Method Nasal Cannula 09/14/2016 1:34pm Oxygen Flow Rate 0.50 L/min 09/14/2016 4:00pm Blood Pressure 155/62 mm Hg 09/15/2016 12:34pm Blood Pressure Source Automatic Cuff 09/15/2016 12:34pm Height (Feet) 4 feet 09/14/2016 9:20am Height (Inches) 10.50 inches 09/14/2016 9:20am Weight (Kilograms) 92.400 kg 09/15/2016 8:25am Body Mass Index (BMI) 43.3 09/14/2016 9:20am Results Laboratory Results Test Name Result Units Flags Reference Collection Date/Time Result Date/ Time Comments White Blood Count 6.0 T/MM3 4.5-11.0 09/15/2016 4:26am 09/15/2016 5: 46am Red Blood Count 3.92 M/MM3 L 4.00-5.20 09/15/2016 4:26am 09/15/2016 5: 46am Hemoglobin 11.6 GM/DL L 12-16 09/15/2016 4:am 09/15/2016 5:46am Hematocrit 36.0 % 36-46 09/15/2016 4:26am 09/15/2016 5:46am Mean Corpuscular Volume 91.8 UM3 80-100 09/15/2016 4:am 09/15/2016 5: 46am Mean Corpuscular Hemoglobin 29.6 UUG 26-34 09/15/2016 4:2016 5:46am Mean Corpuscular Hemoglobin Concent 32.2 GM/DL 31-37 09/15/2016 4:09/15/2016 5:46am RDW Standard Deviation 43.7 FL 36.9-50.2 09/15/2016 4:09/15/2016 5 :46am Platelet Count 263 T/MM3 130-400 09/15/2016 4:09/15/2016 5:46am Mean Platelet Volume 10.3 UM3 9.4-12.4 09/15/2016 4:09/15/2016 5: 46am Neutrophils (%) (Auto) 54.5 % 33-66 09/15/2016 4:09/15/2016 5: 46am Lymphocytes (%) (Auto) 26.2 % 23-45 09/15/2016 4:09/15/2016 5: 46am Monocytes (%) (Auto) 14.5 % H 0-9.0 09/15/2016 4:09/15/2016 5:46am Eosinophils (%) (Auto) 4.0 % 0-4 09/15/2016 4:09/15/2016 5:46am Basophils (%) (Auto) 0.5 % 0-2 09/15/2016 4:09/15/2016 5:46am Immature Granulocyte % (Auto) 0.3 % 0.0-0.5 09/15/2016 4:2016 5:46am Absolute Neutrophils (auto) 3.3 T/MM3 1.8-7.7 09/15/2016 4:2016 5:46am Absolute Lymphocytes (auto) 1.6 T/MM3 1-4.8 09/15/2016 4:2016 5:46am Absolute Monocytes (auto) 0.9 T/MM3 H 0-0.8 09/15/2016 4:2016 5:46am Absolute Eosinophils (auto) 0.2 T/MM3 0-0.5 09/15/2016 4:2016 5:46am Absolute Basophils (auto) 0.0 T/MM3 0-0.2 09/15/2016 4:09/15/2016 5:46am Absolute Immature Granulocyte (auto 0.02 T/MM3 0.00-0.03 09/15/2016 4: 09/15/2016 5:46am Icterus Index < 2 0-7 09/15/2016 4:09/15/2016 6:02am Chemistry Specimen Hemolysis < 15 0-25 09/15/2016 4:09/15/2016 6 :02am 0-25: Specimen Exhibited No Hemolysis. Turbidity < 20 0-20 09/15/2016 4:09/15/2016 6:02am Sodium Level 142 MEQ/L 134-144 09/15/2016 4:09/15/2016 6:02am Potassium Level 4.1 MEQ/L 3.6-5 09/15/2016 4:09/15/2016 6:02am Chloride Level 103 MEQ/L 98-107 09/15/2016 4:09/15/2016 6:02am Carbon Dioxide Level 29 MEQ/L 22-30 09/15/2016 4:09/15/2016 6: 02am Anion Gap 10 MEQ/L 5-15 09/15/2016 4:09/15/2016 6:02am Blood Urea Nitrogen 14.0 MG/DL 7-09/15/2016 4:09/15/2016 6: 02am Creatinine 0.8 MG/DL D 0.7-1.2 09/15/2016 4:09/15/2016 6:06am BUN/Creatinine Ratio 18 RATIO 11-0509/15/2016 4:09/15/2016 6:02am Glomerular Filtration Rate Calc 70 09/15/2016 4:09/15/2016 6: 02am Glucose Level 107 MG/DL 65-110 09/15/2016 4:09/15/2016 6:02am Calculated Osmolality 274 MOSM/KG 261-280 09/15/2016 4:09/15/2016 6:02am Calcium Level 9.1 MG/DL 8.4-10.2 09/15/2016 4:09/15/2016 6:02am Name: LOURDES OCONNELL Kathleen Unit #: [id number] : 1940 Sex: F Admit Date: Loc / Svc: SRG Discharge Date: DIAGNOSTIC IMAGING REPORT Report #: [id number] [facility] Indication: ITS.REASON: ORIF LEFT PATELLA PROCEDURE: RF KNEE LEFT 3 VIEWS: Encounter: Initial Comparison: Radiographs dated September 07, 2016 Findings: Five fluoroscopic spot images are submitted for interpretation. Images show open reduction and internal fixation of the patellar fracture with placement of two flexible fixation and cerclage wires. Impression: Fluoroscopy as above. Fluoroscopy time is 61 seconds. Fluoroscopy dose is 402 mRad. . Procedures Procedure Status Date Provider(s) X-ray exam of ankle Completed 07/31/16 X-ray exam of foot Completed 07/31/16 YAG laser treatment of eye Active 08/29/16 ARYAN MAHER MD Open reduction and internal fixation (ORIF) of fracture of left patella Completed 09/14/16 JESSE FLORENTINO MD Encounters Encounter Location Arrival/Admit Date Discharge/Depart Date Attending Provider Departed [facility] 09/14/16 8:25am 09/15/16 1: 55pm JESSE FLORENTINO MD Registered [facility] 09/12/16 10:32am JESSE FLORENTINO MD Registered [facility] 09/07/16 2:42pm VAN HAYDEN MD Departed [facility] 08/29/16 6:56am 08/29/16 8: 57am ARYAN MAHER MD [facility] 07/31/16 11:17am VAN HAYDEN MD
--- OUTSIDE RECORDS SUMMARY | 2016-10-01 05:44 | XMS REPORT | Continuity of Care Document ---
Author Author [facility] Organization [facility] Address Unknown Phone Unavailable Support Name Relationship Address Phone DOUGLAS OSORIO MD Caregiver [facility] [address] [place] [address] RASHID [address] [place] [address] [phone] VAN HAYDEN MD Caregiver [address] [place] [address] [address] [place] [phone] BAUTISTA OCONNELL Next Of Kin [address] [place] [address] Insurance Providers Payer Name Policy Number Subscriber Name Relationship Medicare [id number] Lourdes Oconnell 18 Self Other A Insurance [id number] Lourdes Oconnell 18 Self Advance Directives Directive [...] F (96.8 - 99.1) Temperature (Calculated Celsius) 36.45672 degrees C (36.0 - 37.3) Temperature Source [...] 2008 5:05pm 1-3 /HPF - Urine Specific [place] February 25, 2009 10:05am 1.005 L - [...] 19, 2013 12:50pm LAB TEST FORM REQUEST [id number] - Turbidity October 19, 2013 10:20am < 20 0-20 Glomerular Filtration Rate Calc October 19, 2013 10:20am 70 - Immature Granulocyte # (Auto) May 27, 2012 9:08am 0.09 T/MM3 H 0.00- 0.03 Immature Granulocyte % (Auto) May 27, 2012 9:08am 1.3 % H 0.0-0.5 Icterus Index October 19, 2013 10:20am < 2 0-7 Name: LOURDES OCONNELL Unit #: [id number] : 1940 Sex: F Loc / Svc: [facility] DOS: 01/19/14 Signed Report #: [id number] DIAGNOSTIC IMAGING REPORT TYPE OF EXAM: FOOT [...] MD Encounters Encounter Location Date/Time Registered Clinic [facility] 01/19/14 12:03pm
--- NOTE | 2016-10-01 06:57 | ANESPREOP ---
Anesthesia Record Date and Time DATE: 10/01/16 TIME: 06:45 Proposed Surgical Procedure LT PATELLA REVISION ORIF Allergies: Coded Allergies: Iodinated Contrast Media - Oral and (Verified Allergy, Intermediate, RASH , 10/01/16) Penicillins (Verified Allergy, Intermediate, HIVES, 10/01/16) aloe (Verified Allergy, Intermediate, RASH, 10/01/16) doxycycline (Verified Allergy, Intermediate, RASH, 10/01/16) azithromycin (Unverified Allergy, Unknown, 10/01/16) cetirizine (Unverified Allergy, Unknown, 10/01/16) PER H&P doxepin (Verified Allergy, Unknown, 10/01/16) codeine (Verified Adverse Reaction, Mild, FEELS "HIGH", 10/01/16) Ht/Wt/BMI Height: 4 ' 10.00 " Weight: 88.300 kg BMI: 40.7 kg/m2 Vital Signs Date Time Temp Pulse Resp B/P Pulse Ox O2 Delivery O2 Flow Rate FiO2 10/01/16 06:06 99.0 66 15 148/86 95 Room Air Medications Inpatient Medications Current Medications Medications (Trade) Dose Ordered Sig/Melecio Start Time Stop Time Status Last Admin Dose Admin Lactated Ringer's (Lactated Ringers) 1,000 ml @ 50 mls/hr Q20H 10/01/16 07:00 Aspirin *EC* (Aspirin EC) 325 Mg Tablet.dr, 325 MG PO BID Last Taken: on 09/30/162029 Diltiazem Hcl (Diltiazem Er) 180 Mg Capsule.cr , 180 MG PO BID, (Reported) Last Taken: on 10/01/16 0430 Divalproex Sodium (Depakote) 500 Mg Tablet.dr, 500 MG PO HS, (Reported) Last Taken: on 09/30/162029 Escitalopram Oxalate (Escitalopram Oxalate) 10 Mg Tablet, 1 TAB PO DAILY, (Reported) Last Taken: on 09/30/16 0700 Fenofibrate Nanocrystallized (Fenofibrate) 145 Mg Tablet, 1 TAB PO DAILY, (Reported) Last Taken: on 09/30/162029 Gabapentin (Gabapentin) 300 Mg Capsule, 2 TAB PO TID, (Reported) Last Taken: on 09/30/162029 Levothyroxine Sodium (Levothyroxine Sodium) 100 Mcg Tablet, 112 MCG PO DAILY, (Reported) Last Taken: on 10/01/16 0430 Nystatin (Nystatin) 1 Each Powder.ea., 1 APPLIC TOP TID, (Reported) Last Taken: on Unknown Date & Time Oxybutynin Chloride (Oxybutynin Chloride ER) 5 Mg Tab.er.24, 1 TAB PO HS, (Reported) Last Taken: on 09/30/162029 Oxycodone HCl/Acetaminophen (Percocet 5-325 mg Tablet) 5-325 Tablet, 1 TAB PO Q4H PRN for PRN ORDERS, (Reported) Last Taken: on 09/30/162029 Torsemide (Torsemide) 10 Mg Tablet, 1 TAB PO DAILY, (Reported) Last Taken: on 09/30/16 0700 Tramadol Hcl (Tramadol Hcl) 50 Mg Tablet, 50 MG PO Q4-6H PRN, (Reported) Last Taken: on 09/30/162029 Currently on Beta Roxanna: No Medical/Surgical History Anesthesia PMH: Reports: *Hypertension (CONTROLLED MEDICATIONS), Asthma (NO INH ), CVA/Stroke/TIA (POSS TIA-NO DEFICITS), Headaches, Pneumonia (HX OF MORE THAN 5 YEARS AGO), Thyroid Disease (HYPOTHYROID), Denies: *Angina, *Diabetes, * Dyspnea, *W[place], Anesthesia Reactions (NO AIRWAY ISSUES ), Arthritis (HISTORY OSTEOPOROSIS), Blood Transfusion Reac, CHF, COPD, Cancer, Clotting Problems, Deep Vein Thrombosis, Glaucoma, Hepatitis, Hiatal Hernia, Malignant Hyperthermia , Reflux, Renal Disease, Rheumatic Fever, Seizures, Sleep Apnea, Tuberculosis Smoking Status: Never smoker Use Chewing Tobacco?: No Second Hand Exposure: No Substance Use Type: does not use Substance last used: prior to arrival Alcohol Intake: none Past Surgical History Orthopedic Surgeries: Yes - 2 TOES AMPUTATED ON RT FOOT; OPEN RCR RT;HAMMER TOE REPAIR,L ORIF KNEE Abdominal Surgeries: No Genitourinary Surgeries: Yes - CYSTO Cardiac Surgeries: No Endocrine Surgeries: No Reproductive Surgeries: Yes - D&C, TUBAL, ABD HYST Neurological Surgeries: Yes - LAMINECTOMY X2 Ear Surgeries: No Nose Surgeries: Yes - NOSE SURGERY Throat Surgeries: No Other Surgeries: Yes - DENTAL SURGERY, COLONOSCOPIES, B CATARACTS Anesthesia Adverse Reactions: FOUND none Pertinent Findings EKG Rhythm: Sinus Rhythm Physical Exam Respiratory: Lungs clear Cardiovascular: FOUND Regular rate, rhythm Airway Assessment Mallampati Score: II TMD: 3 Fingerbreadths Neck Extension: Fair Teeth: Other (lower dentures out, mulitple missing upper teeth) Overall Assessment: May Be Diff Mask Vent. ASA: 3 Plan Anesthesia Plan: LMA, GETA Discussion Discussed risks/options/alternatives of anesthesia and questions answered. Patient consents. Nursing pain assessment noted. Attestation Statement Prior to the delivery of any anesthetic medication, I examined the patient, developed the plan, obtained the patient's consent and discussed the risk and benefits of the procedure with the patient/guardian. KIM BERGER CRNA October 01, 2016 06:57
[2016-10-01] MEDS ORDERED: CLINDAMYCIN 600mg IVPB 50 ML IV ONE (07:00)
[2016-10-01] MEDS ORDERED: LR 1,000 ML IV SCH (07:00)
[2016-10-01] MEDS ORDERED: LIDOCAINE 1% (10mg/ml) 2ml SDV INJ ONE (07:00)
[2016-10-01] MEDS ORDERED: PROPOFOL 200mg 20 ML IV ONE (07:03)
[2016-10-01] MEDS ORDERED: LIDOCAINE 2% (20mg/ml) 5ml PF SDV ONE (07:04)
[2016-10-01] MEDS ORDERED: MIDAZOLAM 2mg/2ml INJECTION ONE (07:05)
[2016-10-01] MEDS ORDERED: FENTANYL 100mcg/2ml INJECTION ONE (07:06)
[2016-10-01] MEDS ORDERED: FLUT9.9S NS (07:12)
[2016-10-01] MEDS ORDERED: ALBU8.5H INH (07:13)
[2016-10-01] MEDS ORDERED: HYDROMORPHONE 2mg/ml INJECTION ONE (07:35)
[2016-10-01] MEDS ORDERED: BUPIVACAINE 0.25% (2.5mg/ml) INJ 30ml SDV ONE (07:50)
[2016-10-01] MEDS ORDERED: SEVOFLURANE 250 ML LIQUID IH ONE (08:56)
--- NOTE | 2016-10-01 09:27 | DI ---
Indication: ITS.REASON: ORIF L PATELLA RF KNEE LEFT 2 VIEWS: Comparison: 09/14/2016 Indication: ITS.REASON: ORIF L PATELLA PROCEDURE: RF KNEE LEFT 2 VIEWS: Encounter: Initial Comparison: Radiographs dated September 07, 2016 Findings: Five fluoroscopic spot images are submitted for interpretation. Images show open reduction and internal fixation of the patellar fracture with placement of two flexible fixation and cerclage wires. Impression: Fluoroscopy as above. Fluoroscopy time is 61 seconds. Fluoroscopy dose is 402 mRad. . Technique: Four C-arm films were submitted Findings: Patient showed stabilization of patellar fracture with hardware Impression: Intraoperative imaging during stabilization of the patellar fracture with good alignment
[2016-10-01] MEDS ORDERED: ONDANSETRON 4mg/2ml INJECTION IV PRN ×2 (09:30→15:45)
[2016-10-01] MEDS ORDERED: FLUTICASONE NASAL SPRAY 50 MCG EA NOSTRIL PRN (09:30)
[2016-10-01] MEDS ORDERED: ALBUTEROL INH.SOLN. 2.5mg/3ml (0.083%) Neb. IH PRN (09:30)
[2016-10-01] MEDS ORDERED: MILK OF MAGNESIA 30 ML SUSP PO PRN (09:30)
[2016-10-01] MEDS ORDERED: PNEUMOCOCCAL VAC. ADMIN. CHARGE INJ ONE (09:32)
--- NOTE | 2016-10-01 09:35 | PDPROCED ---
Immediate Operative Note DATE: 10/01/16 TIME: 09:34 Preop Diagnosis: LEFT KNEE FAILED FIXATION PATELLA FRACTURE Postop Diagnosis: Left knee failed fixation patella fracture Surgical Procedures: Other (revision ORIF left patella fracture) Surgeon: Rojas Thermometer Tester: ABDON Lewis Anesthesia: General (with adductor canal block) Complications: none Estimated Blood Loss see anesthesia ASH PACKER October 01, 2016 09:35
[2016-10-01] MEDS ORDERED: HYDROMORPHONE 2mg/ml INJECTION IV ONE (09:50)
[2016-10-01] MEDS: NORMAL SALINE 1,000 ML IV SCH ×2 (10:30→23:10)
[2016-10-01] MEDS: MORPHINE SULFATE 10 MG SYRINGE IV PRN ×5 (10:34→20:05)
--- NOTE | 2016-10-01 10:43 | ANESPD ---
Peripheral Nerve Blockade Physician: Stan Xie MD Date: 10/01/16 Discussion Discussed risks/options/alternatives of anesthesia and questions answered. Patient consents. Nursing pain assessment noted. Block Start: 09:52 Block Stop: 10:05 Block Employed: Adductor Canal Indication: post-operative pain Approach: left side confirmed Position: supine Patient: Consent, risks/benefits discussed, Informed, post block act. discussed Monitors: EKG, SpO2, NIBP IV Sedation: No Initial Vital Signs First Documented Vital Signs Date Time Temp Pulse Resp B/P Pulse Ox O2 Delivery O2 Flow Rate FiO2 10/01/16 06:06 99.0 66 15 148/86 95 Room Air Post Vital Signs Vital Signs Date Time Temp Pulse Resp B/P Pulse Ox O2 Delivery O2 Flow Rate FiO2 10/01/16 10:34 14 10/01/16 06:06 99.0 66 148/86 95 Room Air Initial Pain Score: 9 Post Block Score: 6 Prep: chlorhexadine/ETOH Ultrasound Used?: Yes Injectate Ropivacaine (%): 0.5 Ropivacaine (mL): 30 Was Epi 1:200,000 Used?: No Injection Injection made incrementally with constant monitoring and aspiration every [5] ml. KIM BERGER CRNA October 01, 2016 10:43
--- NOTE | 2016-10-01 10:44 | ANESPO ---
Post-Op Note Date 10/01/16 Time: 10:43 Status Pt Participated in Evaluation: Pt participated in person Vital Signs Date Time Temp Pulse Resp B/P Pulse Ox O2 Delivery O2 Flow Rate FiO2 10/01/16 10:34 14 10/01/16 06:06 99.0 66 148/86 95 Room Air Respiratory Function: Airway patent Cardiovascular Function: Regular pulse Mental Status: Alert/oriented Pain Level Intensity: 6 Hydration: IV infusing Complications during Recovery None apparent Follow-Up Instructions Instructions Per Surgeon KIM BERGER CRNA October 01, 2016 10:44
--- NOTE | 2016-10-01 10:51 | OPNOTEF ---
DATE OF OPERATION October 01, 2016 PREOPERATIVE DIAGNOSIS Left comminuted patella fracture status post previous open reduction internal fixation with loss of reduction and failure of fixation. POSTOPERATIVE DIAGNOSIS Left comminuted patella fracture status post previous open reduction internal fixation with loss of reduction and failure of fixation. PROCEDURE Repeat open reduction internal fixation left comminuted patella fracture. SURGEON Stan Xie MD ANIMAL TREATMENT INVESTIGATOR Bharath Faye PA-C ANESTHESIA General FLUIDS Please refer to Anesthesia chart. EBL Minimal. TOURNIQUET Please refer to Anesthesia chart. COMPLICATIONS None. CONDITION Stable to recovery room. DESCRIPTION OF PROCEDURE Patient was identified in the preoperative holding area. The operative extremity was identified and appropriately marked. The risks, benefits, alternatives and potential complications were discussed and informed consent was obtained. The patient was taken to the operating theatre, placed supine on the operating table. Appropriate cardiorespiratory monitors were applied. General anesthesia was induced. A tourniquet was applied high on the left thigh though not yet inflated. The left lower extremity was sterilely prepped and draped in the usual fashion. Surgical time-out was performed, confirmed with myself, the low pressure boiler operator and circulating nurse. Preoperative antibiotics were given. The leg was elevated and exsanguinated with an Esmarch. Tourniquet was inflated to 300 mmHg. Previous incision was reestablished anteriorly. Any old suture material was removed. The edges of the wound were debrided. The bursal layer was incised and any old suture material was removed from here as well. Full-thickness sub-bursal flaps were developed. The fracture was again identified. The most medial longitudinal pin had backed out, causing the tension band to become loose. The tension band wires were cut and removed in their entirety. Following this, the 2.0 mm guide pins were removed as well. Inspection of the fracture showed that the lateral aspect was forming a nice fibrous union with early signs of healing. Gentle range of motion showed mild gapping of the anterior portion and slight separation of the cortex. The fracture itself however was showing healing and union. The edges of the fracture were debrided, any degenerative tissue was debrided as well. Reduction tenacula were placed in a proximal to distal direction, providing good compression across the fracture. Two new 2.0 mm guidewires were then advanced using fluoroscopy for guidance. These were placed slightly in a wider configuration compared to the previous. Once adequate position was obtained, two high-strength #2 sutures were woven through the patellar tendon in a Krackow type fashion with one limb of each suture exiting centrally at the inferior pole of the patella and the others coming up the medial and lateral edges of the tendon respectively. A 2.0 mm drill bit was then used to place a central drill hole. The two central sutures were then pulled proximally and out the quadriceps tendon. This was then repeated with the medial and lateral hole, pulling single limb sutures. These would be tied over the top of the proximal pole of the patella. Following this, a 16-gauge Angiocath was utilized to pass a 16-gauge Jose Angel wire posterior to the K-wires both proximally and distally. Because of position and orientation of the tendon of the quadriceps, we were forced to place the Jose Angel wire slightly more proximal and through the tendon than we would have preferred as it was difficult to gain access directly against bone. We elected to accept this. The wires were then cut proximally and bent over the wire and impacted distally. Two loops were then created in the cerclage wire and these were tightened independently of one another, providing a good anterior construct for this tension band. Following this, the central sutures that had been woven through the tendon and passed through the patella themselves were passed laterally and medially to their mated suture. These were then tensioned and tightened as if this were a patellar tendon repair. The distal wires were then bent and positioned and cut as well, noting that these would be a bit prominent but to avoid separation should the wires try to back out as previously. Final x-rays were obtained showing good overall reduction. There was noted some step off on the inferior aspect of the articular surface which was present previously secondary to some loss of subchondral fragments and cartilage. The wound was then copiously irrigated. Standard layered skin closure was performed. The patient was placed in a knee immobilizer with the knee locked in extension. Tourniquet was deflated. The patient was awakened from anesthesia and taken to the recovery room in stable and satisfactory condition. FATOUMATA
--- NOTE | 2016-10-01 11:00 | NUR ---
Admit Pt admitted to room 113 from PACU via cart. pt moved from cart to bed with minimal assistance (nursing held leg). Pt states feeling okay, that the pain is returning but it's tolerable. Pt on 2L o2 via nc
[2016-10-01] MEDS: OXYCODONE/APAP 5mg/325mg TABLET PO PRN ×3 (11:44→21:54)
[2016-10-01] MEDS: CLINDAMYCIN 600mg IVPB 50 ML IV SCH ×2 (13:16→19:12)
[2016-10-01] MEDS ORDERED: PNEUMOCOCCAL 13 VACCINE 0.5 ML SYRINGE IM ONE (15:00)
[2016-10-01] MEDS: GABAPENTIN 300 MG CAPSULE PO SCH ×2 (15:21→20:22)
[2016-10-01] MEDS: NYSTATIN POWDER 15gm BOTTLE TOP SCH ×2 (15:21→20:22)
[2016-10-01] MEDS ORDERED: HYDROMORPHONE 2mg/ml INJECTION IV PRN (15:45)
[2016-10-01] MEDS ORDERED: METOCLOPRAMIDE 10mg/2ml INJECTION IV PRN (15:45)
--- NOTE | 2016-10-01 18:04 | NUR ---
STATUS SUMMARY PT A&O X3. VS STABLE ON RA. PT HAS DENIED NAUSEA. PT GIVEN PRN PAIN MEDICATION ORDERED. ICE PACK IN PLACE TO LEFT KNEE, WITH CANDIDA WRAP AND IMMOBILIZER. PT HELPS POSITION SELF IN BED AND ON BED WELLS WHEN NEEDED, ADEQUATE URINE OUTPUT. PT STOOD AT BEDSIDE WITH THERAPY THIS AFTERNOON. SIDE RAILS UP X2, CALL LIGHT W/IN REACH, BED ALARM ON.
[2016-10-01] MEDS: SENNA + DOCUSATE TAB PO SCH (20:21)
[2016-10-01] MEDS: ASPIRIN *EC* 325mg TABLET PO SCH (20:21)
[2016-10-01] MEDS: DILTIAZEM 90 MG PO SCH (20:23)
[2016-10-01] MEDS ORDERED: DIVALPROEX 500 MG TABLET PO SCH (22:00)
[2016-10-01] MEDS ORDERED: OXYBUTYNIN XL 5 MG TABLET PO SCH (22:00)
[2016-10-02] VITALS (8 sets, daily range): BP systolic 131–153; BP diastolic 48–71; PULSE 60–80; RESP 16–18; TEMP 96.8–97.8; O2SAT 93–97
[2016-10-02] MEDS: CLINDAMYCIN 600mg IVPB 50 ML IV SCH (00:42)
[2016-10-02] MEDS: MORPHINE SULFATE 10 MG SYRINGE IV PRN ×2 (01:59→10:36)
[2016-10-02] MEDS: OXYCODONE/APAP 5mg/325mg TABLET PO PRN ×3 (03:57→14:00)
--- NOTE | 2016-10-02 04:25 | NUR ---
Chart Check 24 hour chart check completed
--- NOTE | 2016-10-02 04:27 | NUR ---
STATUS PATIENT ALERT AND ORIENTEDX3. PATIENT C/O PAIN TO LT KNEE . PRN MORPHINE AND PERCOCET WAS GIVEN PER ORDER. PATIENT USED BEDPAN.ADEQUATE URINARY OUTPUT. ON ROOM AIR.DENIES CHEST PAIN,SOA,OR N/V. NO BM. BED ALARM ON.CALL LIGHT WITHIN REACH.SIDE RAIL UPX2. CONTINUE TO MONITOR.
[2016-10-02 05:23] LABS: BASOPHILS % (AUTO) 0.1 % (0-2); EOSINOPHILS % (AUTO) 0.1 % (0-4); HCT - HEMATOCRIT 38.3 % (36-46); IMMATURE GRANULOCYTE # (AUTO) 0.03 T/MM3 (0.00-0.03); IMMATURE GRANULOCYTE % (AUTO) 0.3 % (0.0-0.5); LYMPHOCYTES # (AUTO) 1.7 T/MM3 (1-4.8); LYMPHOCYTES % (AUTO) 17.3 % (23-45); MEAN CORPUSCULAR HGB 29.1 UUG (26-34); MEAN CORPUSCULAR HGB CONC(MCHC 31.3 GM/DL (31-37); MEAN PLATELET VOLUME 11.3 UM3 (9.4-12.4); NEUTROPHILS #(AUTO)-ABSOLUTE 7.2 T/MM3 (1.8-7.7); NEUTROPHILS % (AUTO) 72.2 % (33-66); RED BLOOD COUNT 4.12 M/MM3 (4.00-5.20)
[2016-10-02 05:36] LABS: ANION GAP 13 MEQ/L (5-15); BUN/CREATININE RATIO 23 RATIO (6-26); CHLORIDE 99 MEQ/L (98-107); CO2 - CARBON DIOXIDE 29 MEQ/L (22-30); CREATININE 0.8 MG/DL (0.7-1.2); GLOMERULAR FILTRATION RATE 70; GLUCOSE 132 MG/DL (65-110); POTASSIUM 4.5 MEQ/L (3.6-5); SODIUM 141 MEQ/L (134-144)
[2016-10-02] MEDS ORDERED: LEVOTHYROXINE 112 MCG TABLET PO SCH (06:30)
[2016-10-02] MEDS ORDERED: FENOFIBRATE 145 MG TABLET PO SCH (08:00)
[2016-10-02] MEDS ORDERED: ONDA4TAB4 PO (08:09)
[2016-10-02] MEDS ORDERED: OXYC1TAB8 PO (08:09)
--- NOTE | 2016-10-02 08:25 | PDORTHOPN ---
Subjective Date DATE: 10/02/16 TIME: 08:20 Subjective Lourdes's main complaint is pain in the surgical knee today. She did manage to get up with PT yesterday, maintaining NWB status. She denies CP, SOB or paraesthesias. She is ready for placement as soon as placement is arranged. She does not feel safe to discharge to home. Objective Vital Signs Vital signs Vital Signs 10/01/16 10/02/16 10/02/16 10/02/16 23:00 01:00 01:05 03:00 Temp 97.3 Pulse 77 62 80 60 Resp 18 18 18 18 B/P 145/71 Pulse Ox 95 94 94 95 O2 Delivery Room Air Room Air Room Air Room Air 10/02/16 10/02/16 10/02/16 03:52 07:36 07:44 Temp 97.7 96.8 Pulse 68 71 71 Resp 16 18 18 B/P 153/52 151/67 Pulse Ox 93 97 O2 Delivery Room Air Room Air Height (Feet): 4 Height (Inches): 10.00 Weight (Kilograms): 93.300 General General Appearance: Alert, Orientated x 3, No Acute Distress Respiratory (Brief) Respiratory Brief: FOUND: non-labored Cardiovascular (Brief) Cardiac: FOUND: calf easily compressible, calf soft, nontender Capillary Refill: <2 sec Abdomen (Brief) Abdominal Brief: FOUND: non-tender Musculoskeletal (Brief) Musculoskeletal Brief: Not FOUND: deformity Comments IROM fitting appropriately Surgical Site Incision: FOUND: clean, dry, intact Integumentary (Brief) Integumentary Brief: FOUND dry, FOUND pink, FOUND warm Neurologic (Brief) Neurological Brief: FOUND: neuro intact Psychiatric (Brief) Psychiatric Brief: FOUND: no acute distress Laboratory Laboratory Laboratory Tests 10/02/16 04:29 Laboratory Tests 10/02/16 04:29 Assessment & Plan Problems: (1) Patella fracture Status: Acute Qualifiers: Fracture type: closed Fracture morphology: comminuted Fracture alignment : displaced Laterality: left Assessment & Plan: s/p revision ORIF left patella fracture by Rojas on 10/01 ASA 325mg PO BID for 30 days for DVT prevention NWB, no quad contraction. Ready for discharge when placement is arranged follow up in orthopaedic clinic in 1 week with Ash COPPOLA Hospital Course Summary Disclaimer The visit summary below is not to be considered part of the above Progress Note. ASH PACKER October 02, 2016 08:25
[2016-10-02] MEDS: NYSTATIN POWDER 15gm BOTTLE TOP SCH ×2 (08:51→14:53)
[2016-10-02] MEDS: GABAPENTIN 300 MG CAPSULE PO SCH ×2 (08:51→14:53)
[2016-10-02] MEDS: ASPIRIN *EC* 325mg TABLET PO SCH (08:51)
[2016-10-02] MEDS: SENNA + DOCUSATE TAB PO SCH (08:51)
[2016-10-02] MEDS: DILTIAZEM 90 MG PO SCH (08:51)
[2016-10-02] MEDS ORDERED: TORSEMIDE 20 MG TABLET PO SCH (09:00)
[2016-10-02] MEDS ORDERED: ESCITALOPRAM 10 MG TABLET PO SCH (09:00)
--- NOTE | 2016-10-02 10:10 | NUR ---
FABRICIO THIS WORKER MET WITH PT ON THIS DATE. PT SITTING IN CHAIR. PT RECALLED THIS WORKER FROM PREVIOUS VISIT. THIS WORKER REVIEWED DISCHARGE PLANS. PT REPORTED THAT SHE WOULD LIKE TO CONSIDER IRU AGAIN TO SEE IF THAT IS A POSSIBILITY. PT REPORTED THAT SHE AND HER HAVE SPOKEN AND IF SHE CANNOT GO TO IRU THEN SHE WOULD GO HOME AND CONTINUE WITH HOME HEALTH. PT DECLINED ANY OFFERS OF USP. CASE MANAGEMENT WILL CONTINUE TO FOLLOW AND ASSIST IN DISCHARGE PLANNING FOR THIS PT.
[2016-10-02] MEDS: NORMAL SALINE 1,000 ML IV SCH ×2 (10:25→13:09)
--- NOTE | 2016-10-02 13:56 | NUR ---
CM THIS WORKER RECEIVED CALL FROM IRU DIRECTOR THAT PT HAS BEEN ACCEPTED TO IRU. THIS WORKER INFORMED PT OF THIS AND PT IN AGREEMENT WITH THIS PLAN. PLAN FOR TRANSFER ON THIS DATE. PHYSICIAN AND PRIMARY NURSE AWARE.
--- NOTE | 2016-10-02 13:57 | NUR ---
IRU referral received. Case reviewed with Dr. Hubbard ophthalmic medical technician who accepts to inpatient rehabilitation post acute discharge. CM notified. Anticipate admission to IRU today.
--- NOTE | 2016-10-02 15:51 | NUR ---
Discharge Pt discharged at this time via wheelchair to the IRU unit. VS stable on RA. Personal belongings sent with Pt. Discharge packet and instructions sent with Pt. Report called to Seth Romano RN.
== END 2016-10-02 15:51 ==
LOC: SRG 05:40 → SCU 05:40
PROVIDERS: ATTEND Orthopaedic Surgery
DX: T84.117A Breakdown (mechanical) of internal fixation device of bone of left lower leg, initial encounter (principal); S82.042K Displaced comminuted fracture of left patella, subsequent encounter for closed fracture with nonunion; Y79.3 Surgical instruments, materials and orthopedic devices (including sutures) associated with adverse incidents; Y92.009 Unspecified place in unspecified non-institutional (private) residence as the place of occurrence of the external cause; Z23 Encounter for immunization
CPT/HCPCS: 27524; 36415; 64447; 73560; 76001; 76942; 80048; 85025; 90732; 94762; 97110; 97162; 97166; 97530; A6222; A9270; G0009; G8978; G8979; G8987; G8988; J1170; J2250; J2704; J3010; J7030; J7120

== ENCOUNTER 2016-10-02 15:52 | Inpatient (IN) ==
[2016-10-11] MEDS ORDERED: HYDROCORTISONE 1% CREAM 28.35gm TOP PRN (05:00)
[2016-10-11] MEDS ORDERED: ALBUTEROL 2.5mg/3ml (0.083%) NEB IH PRN (05:00)
[2016-10-11] MEDS ORDERED: ONDANSETRON 4 MG TABLET PO PRN (05:00)
[2016-10-11] MEDS: DOCUSATE SODIUM 100 MG CAPSULE PO SCH ×2 (08:26→20:24)
[2016-10-11] MEDS: ASPIRIN *EC* 325 MG TABLET PO SCH ×2 (08:26→20:24)
[2016-10-11] MEDS: FENOFIBRATE 145 MG TABLET PO SCH (08:27)
[2016-10-11] MEDS: ESCITALOPRAM 10 MG TABLET PO SCH (08:27)
[2016-10-11] MEDS ORDERED: FLUTICASONE NASAL SPRAY 50mcg EA NOSTRIL PRN (09:00)
[2016-10-11] MEDS: AQUAPHOR TOPICAL OINTMENT 52.5 G TUBE TP SCH ×4 (09:22→20:16)
[2016-10-11] MEDS: TORSEMIDE 20 MG TABLET PO SCH (09:22)
[2016-10-11] MEDS: GABAPENTIN 600 MG TABLET PO SCH ×3 (09:22→20:25)
[2016-10-11] MEDS: OXYCODONE/APAP 5 MG/325 MG TABLET PO PRN ×3 (11:26→21:03)
[2016-10-11] MEDS ORDERED: OXYBUTYNIN XL 5 MG TABLET PO SCH (22:00)
[2016-10-11] MEDS ORDERED: DIVALPROEX 500 MG TABLET PO SCH (22:00)
[2016-10-11] MEDS: TRAMADOL 50 MG TABLET PO PRN (22:52)
[2016-10-12] MEDS: OXYCODONE/APAP 5 MG/325 MG TABLET PO PRN ×3 (03:06→14:11)
[2016-10-12] MEDS: LEVOTHYROXINE 112 MCG TABLET PO SCH ×3 (04:38→05:41)
[2016-10-12] MEDS: TRAMADOL 50 MG TABLET PO PRN (04:38)
[2016-10-12] MEDS: ASPIRIN *EC* 325 MG TABLET PO SCH (08:57)
[2016-10-12] MEDS: GABAPENTIN 600 MG TABLET PO SCH ×2 (08:57→15:09)
[2016-10-12] MEDS: DOCUSATE SODIUM 100 MG CAPSULE PO SCH (08:57)
[2016-10-12] MEDS: ESCITALOPRAM 10 MG TABLET PO SCH (08:58)
[2016-10-12] MEDS: FENOFIBRATE 145 MG TABLET PO SCH (08:58)
[2016-10-12] MEDS: TORSEMIDE 20 MG TABLET PO SCH (08:58)
[2016-10-12] MEDS: AQUAPHOR TOPICAL OINTMENT 52.5 G TUBE TP SCH ×2 (09:04→15:09)
--- NOTE | 2016-10-12 13:29 | Discharge Summary ---
Discharge Information Date of admission: 10/02/16 15:53 Attending Physician: Apolinar Hubbard MD Primary care physician: Dr Brown Consults: 10/10/16 18:16 Case Management Consult [CONS] Routine Reason For Exam: Discharge Planning Physician [Physician Consult] [CONS] Routine Consulting Provider: Brody Nelson Reason For Exam: Medical Management Ordering Provider has Notified [employer] Worker: Yes - Discharge Diagnosis (1) Patella fracture Status: Acute (2) Hypothyroidism Status: Acute (3) Hypertension Status: Acute (4) Anxiety Status: Acute (5) Bipolar disorder Status: Acute (6) Depression Status: Acute (7) Gait instability Status: Acute (8) History of GI bleed Status: Acute - Laboratory Labs: 10/03/16 04:32 10/03/16 04:32 Hospital Course Hospital course: Ms. Booth is a 76 year old female Discharge Plan - Med Rec/Dispo Referrals/Follow Up: Bharath Faye PA [Physician Principal Android Developer] - 2 Weeks (Post-Op follow-up on at 10:30 am. ) Brady Brown MD [Family Provider] - (Hosp. follow-up on 11/08/16 at 2:00pm. ) Prescriptions: No Action Divalproex Sodium [Depakote] 500 mg PO HS #0 Tramadol HCl [Ultram] 50 mg PO Q4-6H PRN #0 PRN Reason: Pain Escitalopram Oxalate 10 mg PO DAILY #0 Fenofibrate Nanocrystallized [Fenofibrate] 1 tab PO DAILY #0 Aspirin [Aspirin EC] 325 mg PO BID 30 Days Levothyroxine Inj 112 mcg PO DAILY Proair Hfa 1 puff INH Q4H PRN PRN Reason: Prn Orders Flonase Allergy Relief 1 spray EA NOSTRIL PRN Ondansetron HCl [Zofran] 4 mg PO Q6H PRN #10 tab PRN Reason: NAUSEA dilTIAZem HCl [Diltiazem ER] 180 mg PO BID #0 Gabapentin 600 mg PO TID #0 Nystatin 1 applic TOP TID #0 bottle Oxybutynin Chloride [Oxybutynin Chloride ER] 5 mg PO HS #0 Torsemide 10 mg PO DAILY #0 Ondansetron Tab 4 mg PO Q6H PRN PRN Reason: Nausea Fluticasone Propionate [Flonase Allergy Relief] 1 spray NS PRN #0 PRN Reason: ALLERY SYMPTOMS Albuterol Sulfate [Proair Hfa] 1 puff INH Q4H PRN #0 inhaler PRN Reason: ASTHMA Oxycodone HCl/Acetaminophen (Percocet 5-325 mg Tablet) 1 - 2 tab PO Q4H PRN # 60 tab PRN Reason: PRN ORDERS - Disposition 01 Discharged Home, Self-Care
--- NOTE | 2016-10-12 13:37 | Discharge Summary ---
Discharge Plan - Med Rec/Dispo Referrals/Follow Up: Bardy Brown MD [Family Provider] - (Hosp. follow-up on 11/08/16 at 2:00pm. ) Bharath Faye PA [Physician Trade Facilitator] - 2 Weeks (Post-Op follow-up on at 10:30 am. ) Prescriptions: New Aquaphor 1 applic TP TID tube Tramadol [Ultram] 50 mg PO Q4-6HR PRN #30 PRN Reason: pain Continue Divalproex Sodium [Depakote] 500 mg PO HS #0 Escitalopram Oxalate 10 mg PO DAILY #0 Fenofibrate Nanocrystallized [Fenofibrate] 1 tab PO DAILY #0 Aspirin [Aspirin EC] 325 mg PO BID 30 Days Levothyroxine Inj 112 mcg PO DAILY Proair Hfa 1 puff INH Q4H PRN PRN Reason: Prn Orders Flonase Allergy Relief 1 spray EA NOSTRIL PRN Oxycodone HCl/Acetaminophen (Percocet 5-325 mg Tablet) 1 - 2 tab PO Q4H PRN # 60 tab PRN Reason: PRN ORDERS dilTIAZem HCl [Diltiazem ER] 180 mg PO BID #0 Gabapentin 600 mg PO TID #0 Nystatin 1 applic TOP TID #0 bottle Oxybutynin Chloride [Oxybutynin Chloride ER] 5 mg PO HS #0 Torsemide 10 mg PO DAILY #0 Fluticasone Propionate [Flonase Allergy Relief] 1 spray NS PRN #0 PRN Reason: ALLERY SYMPTOMS Albuterol Sulfate [Proair Hfa] 1 puff INH Q4H PRN #0 inhaler PRN Reason: ASTHMA Discontinued Ondansetron HCl [Zofran] 4 mg PO Q6H PRN #10 tab PRN Reason: NAUSEA Ondansetron Tab 4 mg PO Q6H PRN PRN Reason: Nausea No Action Tramadol HCl [Ultram] 50 mg PO Q4-6H PRN #0 PRN Reason: Pain - Disposition 01 Discharged Home, Self-Care
--- NOTE | 2016-10-12 13:43 | Progress Note ---
Subjective: Lourdes is seen and examined today. She is up in the wheelchair. States that she is feeling good and planning for discharge later today. Knee pain has been controlled adequately with Percocet and tramadol. Denies shortness of breath, chest pain, or GI complaints. She is planning to be discharged home with her family. Objective Vital signs: Temp Pulse Resp BP Pulse Ox 97.6 F 60 20 141/61 H 94 10/12/16 07:34 10/12/16 07:34 10/12/16 07:34 10/12/16 07:34 10/12/16 07:34 Height: 1.47 m Weight: 93.3 kg Body Mass Index: 43.0 - Constitutional Present: no acute distress - Routine HEENT Exam Eye: Present: EOMI, PERRL - Routine Respiratory Exam Present: CTA bilaterally - Routine Cardiovascular Exam Present: RRR, S1, S2 - Routine Abdominal Exam Present: soft, non distended - Routine Back/Spine/Pelvis Exam Back/Spine: Present: full ROM - Routine Musculoskeletal Exam Musculoskeletal: limited range of motion (right knee) - Routine Neurological Exam Present: alert, oriented X3, CN II-XII intact - Routine Psychiatric Exam Present: normal affect, normal thought process Results - Labs CBC & Chem 7: 10/03/16 04:32 10/03/16 04:32 Assessment and Plan (1) Patella fracture Current visit: Yes Status: Acute (2) Hypothyroidism Current visit: Yes Status: Acute (3) Hypertension Current visit: Yes Status: Acute (4) Anxiety Current visit: Yes Status: Acute (5) Bipolar disorder Current visit: Yes Status: Acute (6) Depression Current visit: Yes Status: Acute (7) Gait instability Current visit: Yes Status: Acute (8) History of GI bleed Current visit: Yes Status: Acute Assessment and Plan: 10/12/16 Overall, the lateral has done well with therapy. While on the IRU unit. Vital signs remain normal. Will be discharged home this afternoon with her family. Will continue on routine cardiac medications. Is on aspirin twice a day for anticoagulation. Ultram and Percocet as needed for pain control She does have follow-up appointment with primary care provider, Dr. Brown as well as orthopedic team. Sepsis Assessment - Evaluation Sepsis screening result: No Definite Risk - Focused Exam Vital Signs Temp Pulse Resp BP Pulse Ox 10/12/16 07:34 97.6 F 60 20 141/61 H 94 Hospital Course Summary Disclaimer: The visit summary below is not to be considered part of the above Progress Note.
--- NOTE | 2016-10-23 09:55 | Discharge Summary ---
Discharge Information Date of admission: 10/02/16 15:53 Attending Physician: Apolinar Hubbard MD Primary care physician: Brady Brown MD Consults: 10/10/16 18:16 Case Management Consult [CONS] Routine Reason For Exam: Discharge Planning Physician [Physician Consult] [CONS] Routine Consulting Provider: Brody Nelson Reason For Exam: Medical Management Ordering Provider has Notified Filterer: Yes - Discharge Diagnosis (1) Patella fracture Status: Acute (2) Hypothyroidism Status: Acute (3) Hypertension Status: Acute (4) Anxiety Status: Acute (5) Bipolar disorder Status: Acute (6) Depression Status: Acute (7) Gait instability Status: Acute (8) History of GI bleed Status: Acute - Laboratory Labs: 10/03/16 04:32 10/03/16 04:32 History of Present Illness HPI: 76 yo female s/p repair of left comminuted patella fracture. She is non weight bearing and unable to maintain ADL's due to weakness. Pt has defiite limitations in mobility and strength due to chronic medical limitations. Hospital Course Hospital course: Ms. Booth is a 76 year old female withRight patellar fracture. Taken to surgery by orthopedics and admitted to IRU for inpatient physical therapy and rehabilitation. Patient has increased stability and stamina during admission. Is stable for discharge home. DVT Prophylaxis: SCD's Discharge Plan - Med Rec/Dispo Referrals/Follow Up: Bharath Faye PA [Physician Aerobics Instructor] - 2 Weeks (Post-Op follow-up on at 10:30 am. ) Brady Brown MD [Family Provider] - (Hosp. follow-up on 11/08/16 at 2:00pm. ) [place] Instructions: Constipation (DC), Patellar Fracture Repair (DC), Fall Prevention (DC) Prescriptions: New Aquaphor 1 applic TP TID tube Tramadol [Ultram] 50 mg PO Q4-6HR PRN #30 PRN Reason: pain Continue Divalproex Sodium [Depakote] 500 mg PO HS #0 Escitalopram Oxalate 10 mg PO DAILY #0 Fenofibrate Nanocrystallized [Fenofibrate] 1 tab PO DAILY #0 Aspirin [Aspirin EC] 325 mg PO BID 30 Days Levothyroxine Inj 112 mcg PO DAILY Proair Hfa 1 puff INH Q4H PRN PRN Reason: Prn Orders Flonase Allergy Relief 1 spray EA NOSTRIL PRN Oxycodone HCl/Acetaminophen (Percocet 5-325 mg Tablet) 1 - 2 tab PO Q4H PRN # 60 tab PRN Reason: PRN ORDERS dilTIAZem HCl [Diltiazem ER] 180 mg PO BID #0 Gabapentin 600 mg PO TID #0 Nystatin 1 applic TOP TID #0 bottle Oxybutynin Chloride [Oxybutynin Chloride ER] 5 mg PO HS #0 Torsemide 10 mg PO DAILY #0 Fluticasone Propionate [Flonase Allergy Relief] 1 spray NS PRN #0 PRN Reason: ALLERY SYMPTOMS Albuterol Sulfate [Proair Hfa] 1 puff INH Q4H PRN #0 inhaler PRN Reason: ASTHMA Discontinued Ondansetron HCl [Zofran] 4 mg PO Q6H PRN #10 tab PRN Reason: NAUSEA Ondansetron Tab 4 mg PO Q6H PRN PRN Reason: Nausea No Action Tramadol HCl [Ultram] 50 mg PO Q4-6H PRN #0 PRN Reason: Pain - Disposition 01 Discharged Home, Self-Care
== END 2016-10-12 16:05 | disposition home health service (06) | DRG 561 ==
PROVIDERS: ADMIT Family Medicine; ATTEND Family Medicine